=== PATIENT | female | born 1950 | race Two or more races ===

== ENCOUNTER → 2021-08-09 16:02 | Outpatient (BNVA) | payer OTHER, SELFPAY | PROVIDERS: PCP Internal Medicine; Visit Provider Nurse Practitioner Family | DX: G47.9 Sleep disorder, unspecified (principal); R06.83 Snoring; G20 Parkinson's disease; M54.2 Cervicalgia; K59.00 Constipation, unspecified; Z79.899 Other long term (current) drug therapy | CPT/HCPCS: 99212 ==

== ENCOUNTER → 2021-11-06 15:10 | Outpatient (BNVA) | payer OTHER, SELFPAY | PROVIDERS: PCP Internal Medicine; Visit Provider Nurse Practitioner Family | DX: G20 Parkinson's disease (principal); G47.9 Sleep disorder, unspecified | CPT/HCPCS: 99212 ==

== ENCOUNTER → 2022-05-15 15:10 | Outpatient (BNVA) | payer OTHER, SELFPAY | PROVIDERS: PCP Internal Medicine; Visit Provider Nurse Practitioner Family | DX: G20 Parkinson's disease (principal); G47.9 Sleep disorder, unspecified; K59.00 Constipation, unspecified; Z79.899 Other long term (current) drug therapy | CPT/HCPCS: 99212 ==

== ENCOUNTER → 2022-11-21 15:54 | Outpatient (BNVA) | payer OTHER, SELFPAY | PROVIDERS: PCP Internal Medicine; Visit Provider Nurse Practitioner Family | DX: G20 Parkinson's disease (principal); G47.9 Sleep disorder, unspecified; K59.00 Constipation, unspecified; Z79.899 Other long term (current) drug therapy | CPT/HCPCS: 99212 ==

== ENCOUNTER 2023-04-18 14:23 | Outpatient (AMB) | payer OTHER, SELFPAY ==
--- NOTE | 2023-04-18 14:24 | MHC.OFFVIS ---
Intake Vital Signs 04/18/23 14:25 Height 5 ft 6 in Weight 139 lb 8 oz BMI 22.5 BP 116/74 Blood Pressure Location Rt brachial Position Sitting Pulse 72 Pulse Source Pulse Oximeter Pulse Oximetry (%) 96 Oxygen Delivery Method Room Air Intake Visit Reasons: 3 mnts f/u appt-Confirmed Intake Note: Patient presents for 3 months. patient states No issues or concerns, she not sleeping very well. Allergies aspirin Allergy (Mild, Verified 04/18/23 14:29) unknown diclofenac Allergy (Mild, Verified 04/18/23 14:29) unknown Medication List - Last Reconciled 04/18/23 by BK Isaac acetaminophen ER (Mapap Arthritis Pain) 0 mg PO amantadine HCl 100 mg PO BID 90 days apixaban (Eliquis) 5 mg PO BID atorvastatin 40 mg PO DAILY bisacodyl 0 mg PO BEDTIME carbidopa-levodopa 25-250 mg 0.5 - 1 tabs orally 6 times a day (max 4 tabs per day); 90 days carbidopa-levodopa 61.25-245 mg ER (Rytary) 2 caps in am and bedtime, and 1 cap 4 x's per day orally 4 times a day; divide evenly over waking hours 30 days carvedilol 12.5 mg PO BID clopidogrel 75 mg PO DAILY dronedarone (Multaq) 400 mg PO BID ferrous sulfate (FeroSul) 325 mg PO TID furosemide 20 mg PO BID hydralazine 25 mg PO BID HPI HPI Comments History of Present Illness Details 72-yr-old female with Parkinson's presents for f/u, accompanied by dtr. Pt denies any significant interval medical changes. Pt reports that her Parkinson's symptoms fluctuate, she is can feel more rigid and slow. Denies light headedness. Denies hallucinations. Denies difficulty chewing or swallowing. She can have constipation. Pt's daughter reports that patient is not physically active. Not always sleeping well. [facility] Medical History Arthritis CKD (chronic kidney disease) Heart disease HLD (hyperlipidemia) Stroke Social History Alcohol intake: never Patient Tobacco Use Status: Never used Tobacco Review of Systems Const All systems reviewed & are unremarkable except as noted in HPI and below Physical Exam Vital Signs: Last Vital Signs Pulse 72 04/18/23 14:25 BP 116/74 04/18/23 14:25 Pulse Ox 96 04/18/23 14:25 Oxygen Delivery Method Room Air 04/18/23 14:25 BMI result Body Mass Index 22.5 Const General: cooperative and no acute distress HEENT Head: Yes normocephalic Resp Effort & Inspection: normal respiratory effort and able to speak in complete sentences Neuro Other: A&O Pleasant affect Mild decreased expression in blink.? Limited RUE ROM. RUE rest and BUE postural tremor.? Fine finger movements and foot taps mild bradykinesia. Slow to stand, no arm swing, short steps, steady with cane. Assessment & Plan Assessment & Plan (1) Parkinson's disease: Code(s): G20 - Parkinson's disease (2) Sleep disorder, unspecified: Comment: Snoring, sleep maintenance difficulties, daytime fatigue, REM sleep behaviors. In-lab PSG 2021- poor sleep efficiency, no REM sleep recorded, AHI 0.3/hr w/ O2 karla 93%. Code(s): G47.9 - Sleep disorder, unspecified Plan Trial Rytary 61.25-245mg caps- 2 caps in am and bedtime, and 1 cap 4 x's per day Once available, hold carbidopa-levodopa 25-100 mg to 1-1/2-1-1/2-1/2-1/2 (max 4 tabs per day). Continue amantadine 100 mg b.i.d.. Continue melatonin 10-20mg q.h.s.. Continue MiraLax, lactulose, bisacodyl, enema p.r.n. Follow-up in 4 months or sooner prn. Medications: New carbidopa-levodopa 61.25-245 mg ER (Rytary) 2 caps in am and bedtime, and 1 cap 4 x's per day orally 4 times a day; divide evenly over waking hours 240 caps 6RF 30 days Coding Level of Care Code Est Pt Level 4 (83166) Diagnoses Parkinson's disease G20 Sleep disorder, unspecified G47.9
[2023-04-18 14:25] VITALS: BP 116/74; PULSE 72; O2SAT 96; BMI 22.5
== END 2023-04-18 15:23 | disposition home or self-care (01) ==
PROVIDERS: PCP Internal Medicine; Visit Provider Nurse Practitioner Family
DX: G20.A2 Parkinson's disease without dyskinesia, with fluctuations (principal); G47.9 Sleep disorder, unspecified
CPT/HCPCS: 99214

== ENCOUNTER → 2023-04-18 14:23 | Outpatient (BNVA) | payer OTHER, SELFPAY | PROVIDERS: PCP Internal Medicine; Visit Provider Nurse Practitioner Family | DX: G20.A1 Parkinson's disease without dyskinesia, without mention of fluctuations (principal); G47.9 Sleep disorder, unspecified | CPT/HCPCS: 99212 ==

== ENCOUNTER 2023-08-23 14:28 | Outpatient (AMB) | payer OTHER, SELFPAY ==
--- NOTE | 2023-08-23 14:43 | MHC.OFFVIS ---
Intake Vital Signs 08/23/23 14:44 Height 5 ft 6 in Weight 139 lb BMI 22.4 Intake Visit Reasons: 4 mo f/u - Sleeping-LVM Intake Note: Patient presents for 4 month follow up sleeping. my tremors are getting worst. Allergies aspirin Allergy (Mild, Verified 08/23/23 14:49) unknown diclofenac Allergy (Mild, Verified 08/23/23 14:49) unknown Medication List - Last Reconciled 09/01/23 by BK Isaac acetaminophen ER (Mapap Arthritis Pain) 0 mg PO amantadine HCl 100 mg PO BID 90 days apixaban (Eliquis) 5 mg PO BID atorvastatin 40 mg PO DAILY bisacodyl 0 mg PO BEDTIME cane Qad cane carbidopa-levodopa 25-250 mg 0.5 - 1 tabs orally 6 times a day (max 4 tabs per day); 90 days carbidopa-levodopa 61.25-245 mg ER (Rytary) 2 caps in am and bedtime, and 1 cap 4 x's per day orally 4 times a day; divide evenly over waking hours 30 days carvedilol 12.5 mg PO BID clopidogrel 75 mg PO DAILY dronedarone (Multaq) 400 mg PO BID ferrous sulfate (FeroSul) 325 mg PO TID furosemide 20 mg PO BID hydralazine 25 mg PO BID HPI HPI Comments History of Present Illness Details 73-yr-old female with Parkinson's presents for f/u, accompanied by dtr. Pt denies any significant interval medical changes. Pt reports her Parkinson's symptoms continue to fluctuate. She never rec'd Rytary. Her tremor continues to be increased at night. She can be stiff and slow. Denies light headedness. Denies hallucinations. Denies difficulty chewing or swallowing. She can have constipation. She is not as active- her knee pain is limiting her mobility even more. Pt would prefer a quad cane- feels it would make her steadier than w/ her current 1 point cane. Sleep varies. [facility] Medical History (Updated 09/01/23 @ 20:38 by BK Isaac) Parkinson's disease Stroke Heart disease Arthritis CKD (chronic kidney disease) HLD (hyperlipidemia) Social History Alcohol intake: never Patient Tobacco Use Status: Never used Tobacco Review of Systems Const All systems reviewed & are unremarkable except as noted in HPI and below Physical Exam Vital Signs: BMI result Body Mass Index 22.4 Const General: cooperative and no acute distress Resp Effort & Inspection: normal respiratory effort and able to speak in complete sentences Neuro Other: A&O Pleasant affect Mild decreased expression in blink.? Limited RUE ROM. RUE rest and BUE postural tremor.? Fine finger movements and foot taps mild bradykinesia. Slow to stand, no arm swing, short steps, steady with cane. Psych Appearance: grossly normal Mental Status: mental status grossly normal Speech and movement: Clear speech present Affect: normal affect Assessment & Plan Assessment & Plan (1) Parkinson's disease without dyskinesia: Code(s): G20.A1 - Parkinson's disease without dyskinesia, without mention of fluctuations (2) Right knee pain: Code(s): M25.561 - Pain in right knee (3) Gait difficulty: Code(s): R26.9 - Unspecified abnormalities of gait and mobility (4) Constipation: Code(s): K59.00 - Constipation, unspecified Plan Will refer pt to orthopedics for eval of worsening right pain and varus. Will order new quad cane. Will f/u on order Rytary 61.25-245mg caps- 2 caps in am and bedtime, and 1 cap 4 x's per day (2 - 1- 1- 1- 1- 2).- in hopes this improves on time. Once Rytary available, hold carbidopa-levodopa 25-100 mg 1-1/2-1-1/2-1/2-1/2 (max 4 tabs per day). Continue amantadine 100 mg b.i.d.. Continue melatonin 10-20mg q.h.s.. Continue MiraLax, lactulose, bisacodyl, enema p.r.n. Follow-up in 4 months or sooner prn. Medications: New cane Qad cane 1 ea 0RF G20 - Parkinson's disease, R26.9 - Unspecified abnormalities of gait and mobility, Z91.81 - History of falling, M25.561 - Pain in right knee Changed From carbidopa-levodopa 61.25-245 mg ER 2 caps in am and bedtime, and 1 cap 4 x's per day orally 4 times a day; divide evenly over waking hours 30 days 240 caps 6RF To carbidopa-levodopa 61.25-245 mg ER (Rytary) 2 caps in am and bedtime, and 1 cap 4 x's per day orally 4 times a day; divide evenly over waking hours 240 caps 6RF 30 days Coding Level of Care Code Est Pt Level 4 (55001) Diagnoses Parkinson's disease without dyskinesia G20.A1 Right knee pain M25.561 Gait difficulty R26.9 Constipation K59.00
[2023-08-23 14:44] VITALS: BMI 22.4
== END 2023-08-23 15:49 | disposition home or self-care (01) ==
PROVIDERS: PCP Internal Medicine; Visit Provider Nurse Practitioner Family
DX: G20.A1 Parkinson's disease without dyskinesia, without mention of fluctuations (principal); M25.561 Pain in right knee; R26.9 Unspecified abnormalities of gait and mobility; K59.00 Constipation, unspecified
CPT/HCPCS: 99214

== ENCOUNTER → 2023-08-23 14:28 | Outpatient (BNVA) | payer OTHER, SELFPAY | PROVIDERS: PCP Internal Medicine; Visit Provider Nurse Practitioner Family | DX: G20.A1 Parkinson's disease without dyskinesia, without mention of fluctuations (principal); M25.561 Pain in right knee; R26.9 Unspecified abnormalities of gait and mobility; K59.00 Constipation, unspecified | CPT/HCPCS: 99212 ==

== ENCOUNTER 2023-09-23 08:43 | Outpatient (REF) | payer OTHER, SELFPAY ==
--- NOTE | ~2023-09-23 | XR_ITS ---
EXAMINATION: XR SHOULDER, LEFT CLINICAL INFORMATION: Left shoulder pain COMPARISON: None available. TECHNIQUE: AP external rotation, scapular Y views of the left shoulder. FINDINGS: BONES: Markedly comminuted fracture lateral left humeral head and surgical neck with mild impaction is seen. JOINTS: Alignment of left glenohumeral and acromioclavicular joints is normal. SOFT TISSUE: Soft tissue is normal. No radiopaque foreign body or abnormal air collection is seen. XR/XR shoulder LT min 2V IMPRESSION: Markedly comminuted fracture lateral left humeral head and surgical neck with mild impaction.
--- NOTE | ~2023-09-23 | XR_ITS ---
EXAMINATION: XR KNEE, RIGHT CLINICAL INFORMATION: Right knee pain COMPARISON: None available. TECHNIQUE: Standing frontal x-ray of bilateral knees, lateral and sunrise view x-rays of the right knee. FINDINGS: BONES: Bony structures are intact. There is no focal bone destruction or periosteal reaction seen. JOINTS: There is complete loss of lateral compartment right knee joint space, genu valgus deformity. SOFT TISSUE: Right suprapatellar fat pad shows increase in density. No radiopaque foreign body or abnormal air collection is seen. XR/XR knee RT 3V IMPRESSION: 1. No acute fracture or dislocation. 2. Severe degenerative changes of the right knee with genu valgus deformity. 3. Right knee effusion is present.
== END 2023-09-23 08:44 | disposition home or self-care (01) ==
LOC: HO.HOSX 08:43
PROVIDERS: Visit Provider Orthopaedic Surgery
DX: S42.202A Unspecified fracture of upper end of left humerus, initial encounter for closed fracture (principal); M17.11 Unilateral primary osteoarthritis, right knee; G20.A1 Parkinson's disease without dyskinesia, without mention of fluctuations; M21.061 Valgus deformity, not elsewhere classified, right knee; X58.XXXA Exposure to other specified factors, initial encounter; Y93.9 Activity, unspecified; Y92.9 Unspecified place or not applicable; Y99.9 Unspecified external cause status; Z91.81 History of falling
CPT/HCPCS: 73030; 73562; 99202

== ENCOUNTER 2023-09-23 09:45 | Outpatient (AMB) | payer OTHER, SELFPAY ==
--- NOTE | 2023-09-23 10:09 | MHC.OFFVIS ---
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 She has a history of Parkinson's disease. Patient reports chronic pain in her right knee. She has taken multiple falls due to Parkinson's, the most recent fall being on Saturday09/18/23. Since this fall she is having increased pain in the right knee and left shoulder. After this fall she was seen in [facility] ED where she was instructed to ice her shoulder and wear a sling. Patient applied ice without barrier and has developed a blister on the anterior aspect of her shoulder. 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 She has a history of Parkinson's disease. Patient reports chronic pain in her right knee. She has taken multiple falls due to Parkinson's, the most recent fall being on Saturday09/18/23. Since this fall she is having increased pain in the right knee and left shoulder. After this fall she was seen in [facility] ED where she was instructed to ice her shoulder and wear a sling. Patient applied ice without barrier and has developed a blister on the anterior aspect of her shoulder. [facility] Medical History Parkinson's disease Stroke Heart disease Arthritis CKD (chronic kidney disease) HLD (hyperlipidemia) Social History Alcohol intake: never Patient Tobacco Use Status: Never used Tobacco Physical Exam Vital Signs: BMI result Body Mass Index 22.4 Extrem Other: Right valgus knee approx 20 deg. 1+ valgus instability. Left shoulder with eccymosis and pain and small lateral fracture blister. SILT lateral deltoid Results Reviewed Results Reviewed: I personally reviewed relevant radiographs. Severe right knee valgus pattern OA Left proximal humerus fracture Assessment & Plan Assessment & Plan (1) Parkinson's disease without dyskinesia: Code(s): G20.A1 - Parkinson's disease without dyskinesia, without mention of fluctuations Plan: Frequent falls. (2) Arthritis of right knee: Code(s): M17.11 - Unilateral primary osteoarthritis, right knee Plan: Unloading brace may be helpful but does not want injections or surgery (3) Valgus deformity, not elsewhere classified, right knee: Code(s): M21.061 - Valgus deformity, not elsewhere classified, right knee Plan: Severe deformity (4) Closed fracture of left proximal humerus: Code(s): S4.A - Unspecified fracture of upper end of left humerus, initial encounter for closed fracture Plan: Gentle ROM as tolerated. Sling as tolerated. Orders: Orders XR knee standing BI Today M25.569 - Pain in unspecified knee XR shoulder LT min 2V Today M25.519 - Pain in unspecified shoulder Coding Level of Care Code New Pt Level 4 (97456) Diagnoses Parkinson's disease without dyskinesia G20.A1 Arthritis of right knee M17.11 Valgus deformity, not elsewhere classified, right knee M21.061 Closed fracture of left proximal humerus S42.
[2023-09-23 10:21] VITALS: BMI 22.4
== END 2023-09-23 11:36 | disposition home or self-care (01) ==
PROVIDERS: PCP Internal Medicine; Visit Provider Orthopaedic Surgery
DX: M17.11 Unilateral primary osteoarthritis, right knee (principal); G20.A1 Parkinson's disease without dyskinesia, without mention of fluctuations; M21.061 Valgus deformity, not elsewhere classified, right knee; S42.202A Unspecified fracture of upper end of left humerus, initial encounter for closed fracture
CPT/HCPCS: 99204

== ENCOUNTER 2023-12-17 14:49 | Outpatient (AMB) | payer OTHER, SELFPAY ==
--- NOTE | 2023-12-17 14:57 | A.OFFVIS_ITS ---
Vital Signs 12/17/23 15:06 Height 5 ft 6 in Weight 138 lb BMI 22.3 BP 142/80 H Blood Pressure Location Lt brachial Position Sitting Pulse 72 Pulse Source Pulse Oximeter Pulse Oximetry (%) 99 Oxygen Delivery Method Room Air Intake Visit Reasons: follow up Sleeping-LVM Intake Note: Patient presents for f/u. Right hand weakness and finger very stiff. Muscle tightness. Would like a order for PT. Reading Tutor Required: Yes Reading Tutor Services: Reading Tutor Present Reading Tutor Name: Michaelle Randolph Allergies aspirin Allergy (Mild, Verified 12/17/23 15:05) unknown diclofenac Allergy (Mild, Verified 12/17/23 15:05) unknown Medication List - Last Reconciled 12/17/23 by BK Isaac acetaminophen ER (Mapap Arthritis Pain) 0 mg PO apixaban (Eliquis) 5 mg PO BID atorvastatin 40 mg PO DAILY bisacodyl 0 mg PO BEDTIME cane Qad cane carbidopa-levodopa 25-100 mg ER 2 tabs orally 6 x's per day; 30 days carvedilol 12.5 mg PO BID clopidogrel 75 mg PO DAILY dronedarone (Multaq) 400 mg PO BID ferrous sulfate (FeroSul) 325 mg PO TID furosemide 20 mg PO BID hydralazine 25 mg PO BID HPI Comments Details: 73-yr-old female presents for f/u visit, accompanied by her dtr. She had a fall at the end of August, fell onto her left side and sustained a left humerus fx. She did see Dr Stevens, and now will see [facility] orthopedics on 12/19/23. She has been doing PT which will end next week. Pt asksing for referal for massage tx. She would like to do a PD exercise class. Pt's current PD medication regimen: CD-LD ER 25-100mg- 6 tablets a day. Amantadine 100mg bid She never received the Rytary- was denied. ADL's: Needing some help Swallowing: a little if drinking water from a bottle Drooling: some Orthostatic lightheadedness: denies Constipation: some, manages it ok w/ fruits Urinary symptoms: denies Tremor: tremor continues to be increased at night. Dyskinesia: denies Stiffness: soem in the RLE Gait changes: Better w/ the 4 wheeled walker Freezing: Denies Falls: No other falls Mood: some depression Hallucinations: at times- in the night, can be bothersome. Memory: feels it is ok, but may have word finding difficulty. Sleep: can have some difficulty. Exercise: completing PT PFSH Medical History Parkinson's disease Stroke Heart disease Arthritis CKD (chronic kidney disease) HLD (hyperlipidemia) Social History Alcohol intake: never Patient Tobacco Use Status: Never used Tobacco Review of Systems Const All systems reviewed & are unremarkable except as noted in HPI and below Physical Exam Vital Signs: Last Vital Signs Pulse 72 12/17/23 15:06 BP 142/80 H 12/17/23 15:06 Pulse Ox 99 12/17/23 15:06 Oxygen Delivery Method Room Air 12/17/23 15:06 BMI result Body Mass Index 22.3 Const General: cooperative and no acute distress Resp Effort & Inspection: normal respiratory effort and able to speak in complete sentences Neuro Other: A&O Pleasant affect Mild decreased expression in blink.? Soft speech RUE ROM tightness No dyskinesias. RUE rest and BUE postural tremor.? Fine finger movements and Foot taps mild bradykinesia- induces RUE spread of movement tremor. Slow to stand, no arm swing, short steps, RLE valgus, steady with walker. Assessment & Plan Assessment & Plan (1) Parkinson's disease without dyskinesia: Code(s): G20.A1 - Parkinson's disease without dyskinesia, without mention of fluctuations Category: Medical (2) Rigidity: Code(s): R29.898 - Other symptoms and signs involving the musculoskeletal system Category: Medical (3) Gait difficulty: Code(s): R26.9 - Unspecified abnormalities of gait and mobility Category: Medical Plan F/u w/ [facility] ortho for LUE humerus fx. Discussed that pt may do PD exercise program if ortho clears her for this. Order written for massage tx. Message sent to [facility] ortho- to f/u on RLE knee brace request. Continue to use walker. Adjust CD-LD ER 25-100mg 1 tab 6 x's per day to 8 tabs per day- 2-1-2-1-1-1. Take w/ carbohydrate. If not tolerated, consider Rytary at approx 1800mg qd. Continue amantadine 100 mg b.i.d.. Continue melatonin 10-20mg q.h.s.. Continue MiraLax, lactulose, bisacodyl, enema p.r.n. Follow-up in 4-6 months or sooner prn. Orders: Referrals Massage Therapy Referral G20.A1 - Parkinson's disease without dyskinesia, without mention of fluctuations, R29.898 - Other symptoms and signs involving the musculoskeletal system Coding Level of Care Code Est Pt Level 4 (99365) Diagnoses Parkinson's disease without dyskinesia G20.A1 Rigidity R29.898 Gait difficulty R26.9
[2023-12-17 15:06] VITALS: BP 142/80; PULSE 72; O2SAT 99; BMI 22.3
== END 2023-12-17 16:13 | disposition home or self-care (01) ==
PROVIDERS: PCP Internal Medicine; Visit Provider Nurse Practitioner Family
DX: G20.A1 Parkinson's disease without dyskinesia, without mention of fluctuations (principal); R29.898 Other symptoms and signs involving the musculoskeletal system; R26.9 Unspecified abnormalities of gait and mobility
CPT/HCPCS: 99214

== ENCOUNTER → 2023-12-17 14:49 | Outpatient (BNVA) | payer OTHER, SELFPAY | PROVIDERS: PCP Internal Medicine; Visit Provider Nurse Practitioner Family | DX: G20.A1 Parkinson's disease without dyskinesia, without mention of fluctuations (principal); R26.9 Unspecified abnormalities of gait and mobility; R29.898 Other symptoms and signs involving the musculoskeletal system | CPT/HCPCS: 99212 ==

== ENCOUNTER 2024-07-15 15:41 | Outpatient (AMB) | payer OTHER, SELFPAY ==
[2024-07-15 15:48] VITALS: PULSE 77; O2SAT 92; BMI 22.3
--- NOTE | 2024-07-15 15:48 | A.OFFVIS_ITS ---
Vital Signs 07/15/24 15:48 Height 5 ft 6 in Weight 138 lb BMI 22.3 Pulse 77 Pulse Source Pulse Oximeter Pulse Oximetry (%) 92 Oxygen Delivery Method Room Air Intake Visit Reasons: Follow up Allergies aspirin Allergy (Mild, Verified 07/15/24 15:51) unknown diclofenac Allergy (Mild, Verified 07/15/24 15:51) unknown Medication List - Last Reconciled 07/15/24 by BK Isaac acetaminophen ER (Mapap Arthritis Pain) 0 mg PO apixaban (Eliquis) 5 mg PO BID atorvastatin 40 mg PO DAILY bisacodyl 0 mg PO BEDTIME cane Qad cane carbidopa-levodopa 61.25-245 mg ER (Rytary) 2 caps in am and 1 cap 5 x's per day orally .; divide evenly over waking hours 30 days carvedilol 12.5 mg PO BID clopidogrel 75 mg PO DAILY dronedarone (Multaq) 400 mg PO BID ferrous sulfate (FeroSul) 325 mg PO TID furosemide 20 mg PO BID hydralazine 25 mg PO BID polyethylene glycol 3350 (Miralax) 17 grams PO DAILY 30 days sertraline 25 mg PO DAILY 30 days HPI Comments Details: 74-yr-old female presents for f/u visit for Parkinson's disease, accompanied by her dtr. Patient is wondering about darkening of her skin in bilateral hands and feet. She denies distal swelling, numbness tingling. Occasionally may have some discomfort in her feet. She has talked with her PCP about this, and this was thought to be age-related. Recent lab work was unremarkable Pt's current PD medication regimen: Rytary 61.25-245 mg cap- 1 cap 6 times a day or 2 caps 3 times a day. Amantadine 100mg bid ADL's: Needing some help Swallowing: denies issues at this time Drooling: some Orthostatic lightheadedness: denies Constipation: Patient has been having increased constipation. Taking fruits is not as effective as it used to be. Urinary symptoms: denies Tremor: tremor continues to be increased at night. Dyskinesia: denies Stiffness: some in the arms and the RLE. Now seeing orthopedics at [facility] for her right knee- wearing a brace which helps. Gait changes: Better w/ the right knee brace and 4 wheeled walker Freezing: Denies Falls: Denies Mood: After the last visit, we started patient on sertraline 25 mg daily due to anxiety and depression. Mood is better, but she may be sad at times. Hallucinations: at times- vivid dreams, but not bothersome Memory: feels it is ok, but may have word finding difficulty. Sleep: sleeping about 7-8 hrs a night Exercise: doing PT for her arms at this time. [facility] Medical History Parkinson's disease Stroke Heart disease Arthritis CKD (chronic kidney disease) HLD (hyperlipidemia) Social History Alcohol intake: never Patient Tobacco Use Status: Never used Tobacco Physical Exam Vital Signs: Last Vital Signs Pulse 77 07/15/24 15:48 Pulse Ox 92 07/15/24 15:48 Oxygen Delivery Method Room Air 07/15/24 15:48 BMI result Body Mass Index 22.3 Const General: cooperative and no acute distress Resp Effort & Inspection: normal respiratory effort and able to speak in complete sentences Neuro Other: A&O, responding appropriately Pleasant affect Mild decreased expression in blink.? Soft speech Mild visible intermittent drooling BUE R > L rigidity No dyskinesias. RUE rest and BUE postural tremor.? Fine finger movements- BUE, right more so than left, bradykineisia Foot taps mild BLE bradykinesia- induces RUE spread of movement tremor. Slow to stand, no arm swing, short steps, RLE knee brace on with varus, steady with walker. Assessment & Plan Assessment & Plan (1) Parkinson's disease without dyskinesia: Code(s): G20.A1 - Parkinson's disease without dyskinesia, without mention of fluctuations Category: Medical (2) Rigidity: Code(s): R29.898 - Other symptoms and signs involving the musculoskeletal system Category: Medical (3) Gait difficulty: Code(s): R26.9 - Unspecified abnormalities of gait and mobility Category: Medical (4) Constipation: Code(s): K59.00 - Constipation, unspecified Category: Medical Plan Continue Rytary 61.25mg-245mg- though adjust timing to 2 caps in a.m. and then 1 cap p.o. 5 times a day. Continue amantadine 100 mg b.i.d. Continue sertraline 25 mg daily. Continue melatonin 10-20mg q.h.s. prn Start MiraLax 17 g p.o. daily- taken with fruit-for constipation Continue lactulose, bisacodyl, enema p.r.n constipation Follow-up with [facility] orthopedics Continue to walk with walker. Follow-up in 6 months or sooner prn. Medications: New polyethylene glycol 3350 (Miralax) 17 grams PO DAILY 510 grams 6RF 30 days G20.A1 - Parkinson's disease without dyskinesia, without mention of fluctuations, K59.00 - Constipation, unspecified Changed From carbidopa-levodopa 61.25-245 mg ER (Rytary) 2 caps in am and bedtime, and 1 cap 4 x's per day orally 4 times a day; divide evenly over waking hours 240 caps 6RF 30 days To carbidopa-levodopa 61.25-245 mg ER (Rytary) 2 caps in am and 1 cap 5 x's per day orally .; divide evenly over waking hours 240 caps 6RF 30 days Discontinued carbidopa-levodopa 25-100 mg ER Discontinued Reason: Doctor's Order 2 tabs orally 6 x's per day; 30 days 360 tabs 6RF Coding Level of Care Code Est Pt Level 4 (42396) Complex EM visit Add On G2211 Diagnoses Parkinson's disease without dyskinesia G20.A1 Rigidity R29.898 Gait difficulty R26.9 Constipation K59.00
--- OUTSIDE RECORDS SUMMARY | 2024-07-15 17:59 | XMS_ITS | Clinical Summary ---
Author Organization [facility] Address [address] [place] [address] Phone Care Team Providers Care Accounts Payable Analyst Name Role Phone Faraz Witt Primary [facility] Provider [facility] Un[facility] [phone] Reason for Visit and Chief Complaint Established Patient Plan of Treatment Pending Tests Order Diagnosis Results Due Ordering P earlene Follow Up - Appointment PRN Unsp fra cture of upper end of left humerus, init for clos fx 03/05/24 Rocio OSORIO Last Documented On 4 11:34AM ; [facility] Assessments Includes: Assessments from this encounter No Assessments Recorded Medical Equipment - Implanted Devices Includes: Current Devices No Medical Equipment Recorded Medications Includes: Medications discussed during this encounter and other current Medications Current Medications (continue as prescribed) Endocet 2.5-325 MG Oral Tablet 10/03/2023 Provider: Diagnosis: Last Documented On 4 9:07AM By Abdirahman Diez ; [facility] Medications Administered Includes: Administered Medications from this encounter No Administered Medications Recorded Vital Signs Includes: Vital Signs from this encounter Vital Name 03/05/2024 10:23A Blood Pressure Sitting (mmHg) 132/81 Pulse Rate-Sitting (bpm) 70 Temp-Temporal 96.9 Height (in) 65 Weight (lb) 138 Body Mass Index 23 Body Surface Area 1.7 Oxygen Saturation (%) 98 Last Documented: On 03/05/2024 10:23A M ; [facility] Results Includes: Results discussed during this encounter No Results Recorded For Specified Dates History of Present Illness Includes: History of Present Illness from this encounter No History of Present Illness Recorded Social History No Social History Recorded - Smoking Status Unknown Medical History Includes: Medical History addressed during this encounter No Medical History Recorded Family History Includes: Family History addressed during this encounter No Family History Recorded Review of Systems Includes: Review of Systems from this encounter Chief complaint: Left proximal humerus fracture Date of injury: 09/18/2023 History of present illness: The patient is a 74-year-old mafcj-ecvk-wbuxmyem Kyrgyz-speaking female with a medical history significant for parkinsonian has been treated nonsurgically for a left proximal humerus fracture. She was last seen in the office on 12/19/2023. She was instructed to work with PT and follow-up in 8 to 10 weeks. She is accompanied today by her daughter. She reports last going to therapy in December due to insurance issues. She is scheduled to begin PT again on 03/11/2024. She complains of bilateral shoulder pain with left greater than right. She complains of pain with shoulder range of motion and is unable to raise her left arm overhead. She has been taking Tylenol for pain. She is unable to take NSAIDs due to hypertension. She denies numbness or tingling. She has no other complaints at this time. Physical exam: Mild tenderness to palpation over left shoulder. No wounds, ecchymosis or skin breakdown noted. Shoulder range of motion abduction to 60 degrees, forward flexion 70 degrees. Pain with shoulder range of motion. No pain with elbow, wrist or hand range of motion. Good abrasive mixer helper strength. Skin and neurovascular exams intact. Diagnostic imaging: None obtained today Assessment: The patient is 6 months status post left proximal humerus fracture Plan: Patient is to restart physical therapy for range of motion exercises and strengthening. Continue Tylenol as needed for pain. Rest, ice and elevate as needed. Caution to avoid reinjury. She may follow-up as needed. The patient and her daughter understand and agree with the above-stated plan. historic interpreter utilized via [employer], [email or web address] #[id number]. Case discussed with Dr. Archuleta. Mental Status Includes: Mental Status from this encounter No Mental Status Recorded Functional Status Includes: Functional Status from this encounter No Functional Status Recorded Physical Exam Includes: Physical Exam from this encounter Encounters Encounter Provider Location Date Check-In Time Check-Out Time Diagnosis Established Patient Rocio OSORIO [facility], 03/05/20 24 10:40AM 11:29AM Insurance Includes: Active Insurance Policies Plan Name Member ID Group # Subscriber Relationship Effect becky Dates 1 - [facility] [id number] Julee Simental Self Clinical Notes Includes: Clinical Notes from this encounter * Progress note Date Encounter Last Documented by 03/05/2024 Established Patient Last hanny foster on 03/05/2024; 11:34 AM, Rocio OSORIO; [facility], Physical Findings - Vitals taken 03/05/2024 10:23 am BP-Sitting 132/81 mmHg Pulse Rate-Sitting 70 bpm Temp-Temporal 96.9 F Height 65 in Weight 138 lbs Body Mass Index 23 kg/m2 Body Surface Area 1.7 m2 Oxygen Saturation 98 % Plan StartCited - Unsp fracture of upper end of left humerus, init for clos fx Follow Up/Appointment: PRN EndCited User Defined 4 Chief complaint: Left proximal humerus fracture Date of injury: 09/18/2023 History of present illness: The patient is a 74-year-old dfoqd-jaax-fqhhbiqh Kyrgyz-speaking female with a medical history significant for parkinsonian has been treated nonsurgically for a left proximal humerus fracture. She was last seen in the office on 12/19/2023. She was instructed to work with PT and follow-up in 8 to 10 weeks. She is accompanied today by her daughter. She reports last going to therapy in December due to insurance issues. She is scheduled to begin PT again on 03/11/2024. She complains of bilateral shoulder pain with left greater than right. She complains of pain with shoulder range of motion and is unable to raise her left arm overhead. She has been taking Tylenol for pain. She is unable to take NSAIDs due to hypertension. She denies numbness or tingling. She has no other complaints at this time. Physical exam: Mild tenderness to palpation over left shoulder. No wounds, ecchymosis or skin breakdown noted. Shoulder range of motion abduction to 60 degrees, forward flexion 70 degrees. Pain with shoulder range of motion. No pain with elbow, wrist or hand range of motion. Good abrasive mixer helper strength. Skin and neurovascular exams intact. Diagnostic imaging: None obtained today Assessment: The patient is 6 months status post left proximal humerus fracture Plan: Patient is to restart physical therapy for range of motion exercises and strengthening. Continue Tylenol as needed for pain. Rest, ice and elevate as needed. Caution to avoid reinjury. She may follow-up as needed. The patient and her daughter understand and agree with the above-stated plan. historic interpreter utilized via [employer], [email or web address] #[id number]. Case discussed with Dr. Archuleta.
--- OUTSIDE RECORDS SUMMARY | 2024-07-15 17:59 | XMS_ITS | Clinical Summary ---
Author Organization [facility] Address [address] [place] [address] Phone Care Team Providers Care Diesel Powerplant Mechanic Helper Name Role Phone Faraz Witt Primary Care Provider [facility] Unavailable [phone] Reason for Visit and Chief Complaint Procedure Plan of Treatment Pending Tests Order Diagnosis Results Due Ordering P earlene Follow Up - Appointment 6 weeks Unsp fra cture of upper end of left humerus, init for clos fx 11/14/23 Mandie Cruz PA-C Last Documented On 4 8:29AM ; [facility] In House X-Rays - X-Rays Shoulder, left, min of 2 views ([id number]) Unsp fracture of upper end of left humerus, init for clos fx 11/16/23 Mandie Cruz PA-C Last Documented On 4 8:29AM ; [facility] Assessments Includes: Assessments from this encounter No Assessments Recorded Medical Equipment - Implanted Devices Includes: Current Devices No Medical Equipment Recorded Medications Includes: Medications discussed during this encounter and other current Medications Current Medications (continue as prescribed) Endocet 2.5-325 MG Oral Tablet 10/03/2023 Provider: Diagnosis: Last Documented On 9:07AM By Abdirahman Diez ; [facility] Medications Administered Includes: Administered Medications from this encounter No Administered Medications Recorded Vital Signs Includes: Vital Signs from this encounter Vital Name 11/14/2023 08:35A Blood Pressure Sitting (mmHg) 125/73 Pulse Rate-Sitting (bpm) 55 Temp-Temporal 97 Height (in) 65 Weight (lb) 138 Body Mass Index 23 Body Surface Area 1.7 Oxygen Saturation (%) 97 Last Documented: On 11/14/2023 8:35AM ; [facility] Results Includes: Results discussed during this encounter No Results Recorded For Specified Dates History of Present Illness Includes: History of Present Illness from this encounter No History of Present Illness Recorded Social History No Social History Recorded - Smoking Status Unknown Procedures and Surgical History Includes: Procedures from this encounter Procedures Code Diagnosis Performing Provider Service Location Service Date X-Ray Of Shoulder, complete, min of 2 views (Left) [id number] Unsp fracture of upper end of left humerus, init for clos fx Mand[facility] Cruz [facility] 11/14/2023 Last Documented On 4 3:48PM ; [facility] Medical History Includes: Medical History addressed during this encounter No Medical History Recorded Family History Includes: Family History addressed during this encounter No Family History Recorded Review of Systems Includes: Review of Systems from this encounter No Review of Systems Recorded Mental Status Includes: Mental Status from this encounter No Mental Status Recorded Functional Status Includes: Functional Status from this encounter No Functional Status Recorded Physical Exam Includes: Physical Exam from this encounter No Physical Exam Recorded Encounters Encounter Provider Location Date Check-In Time Check-Out Time Diagnosis Procedure Mandie Cruz PA-C [facility] 4 8:00AM 8:25AM Insurance Includes: Active Insurance Policies Plan Name Member ID Group # Subscriber Relationship Effect becky Dates 1 - [facility] [id number] Julee Simental Dameon Clinical Notes Includes: Clinical Notes from this encounter * Progress note Date Encounter Last Documented by 11/14/2023 Procedure Last documented on 11/14/2023; 8:29 AM, Mandie Cruz PA-C; [facility] Reason For Visit Chief complaint: Follow-up fracture left proximal humerus Date of injury: 09/18/2023 History of Present Illness: Patient is a Japanese-speaking 73-year-old female who sustained a fracture to the left proximal humerus on 09/18/2023. She was last seen in the office on 10/15/2023 at which time she was prescribed physical therapy. She is accompanied by her daughter today and her other daughter is on the phone to help with translation. Patient has been to 2 physical therapy appointments and is complaining of ongoing pain throughout the left arm. She has discontinued the sling. No numbness tingling reported. No other complaints at this time Physical exam: Well-appearing elderly female in no acute distress found seated on the exam table. There is moderate swelling noted throughout the left shoulder. No point tenderness appreciated. There is diffuse tenderness throughout the lateral arm. There is a patch of discolored skin on the lateral aspect of the upper arm. Patient has active abduction and forward flexion to about 50 degrees which I am able to advance to about 80 degrees passively. Motor and sensory intact distally. Imaging: X-ray of the left shoulder taken today are compared to prior images. No change in fracture alignment. Fracture callus is present. Impression: 12 weeks sp Fracture left proximal humerus Plan: - Weightbearing: Advance weightbearing as tolerated - Activity/Therapy: Continue PT for range of motion and strengthening as needed- no activity restrictions at this time. Updated physical therapy prescription provided. Patient encouraged to use the arm is much as she can to perform ADLs to accelerate her progress, Caution to avoid reinjury - Dressing/DME: Continue cane for ambulation as needed - Pain control: Elevate affected extremity; apply ice to affected area; over the counter pain medication such as Tylenol or NSAID's - Follow up: 4-6 weeks - X-ray at follow up: none needed Case discussed with Dr Clemons Plan StartCited - Unsp fracture of upper end of left humerus, init for clos fx Follow Up/Appointment: 6 weeks In House X-Rays/X-Rays: Shoulder, left, min of 2 views ([id number]) EndCited
--- OUTSIDE RECORDS SUMMARY | 2024-07-15 17:59 | XMS_ITS ---
Care Plan - [facility], Created on: July 15, 2024 Simental Julee : 1950 Sex: Female Author Organization [facility] Address [address] [place] [address] Phone Care Team Providers Care Senior Microsoft Consultant Name Role Phone Faraz Witt Primary Care Provider [facility], Unavailable [phone]
--- OUTSIDE RECORDS SUMMARY | 2024-07-15 17:59 | XMS_ITS | Clinical Summary ---
Author Organization [facility] Address [address] [place] [address] Phone Care Team Providers Care Cellar Pumper Name Role Phone Faraz Witt Primary [facility] Provider [facility] Un[facility] Reason for Visit and Chief Complaint Established Patient Plan of Treatment No Plan of Treatment Recorded Assessments Includes: Assessments from this encounter No Assessments Recorded Medical Equipment - Implanted Devices Includes: Current Devices No Medical Equipment Recorded Medications Includes: Medications discussed during this encounter and other current Medications Current Medications (continue as prescribed) Endocet 2.5-325 MG Oral Tablet 10/03/2023 Provider: Diagnosis: Last Documented On 9:07AM By Abdirahman Diez ; [facility] Medications Administered Includes: Administered Medications from this encounter No Administered Medications Recorded Vital Signs Includes: Vital Signs from this encounter Vital Name 12/19/2023 08:28A Pulse Rate-Sitting (bpm) 95 Temp-Oral (F) 97 Height (in) 65 Oxygen Saturation (%) 97 Last Documented: On 12/19/2023 8:29AM ; [facility] Results Includes: Results discussed during this encounter [...] Check-In Time Check-Out Time Diagnosis Established Patient Primo Archuleta [facility] 8:00AM 8:17AM Insurance Includes: Active Insurance Policies Plan Name Member ID Group # Subscriber Relationship Effect becky Dates 1 - [facility] [id number] Julee Simental Self Clinical Notes Includes: Clinical Notes from this encounter * Progress note Date Encounter Last Documented by 12/19/2023 Established Patient Willis foster on 12/19/2023; 10:33 AM, Primo Archuleta MD; [facility], Chief Complaint CC: Left proximal humerus fracture DOI: 09/18/2023 Nonoperative treatment HPI: 73-year-old bevbo-jcpg-qiptfdph parkinsonian Turkmen-speaking female Returns with daughter Continuing with physical therapy at home overall continuing to improve There were no x-rays performed today Pain: Improving but not 100% Denies numbness ting paresthesias Denies any recurrent trauma Physical exam Alert oriented nondistressed [age]-year-old female resting comfortably seated in chair Parkinsonian tremor noted Slight habitus pleasant meaner affect Left upper extremity no symmetry to gross deformity Sensation intact distally good cap refill distally Satisfactory motion able to flex and AB duct to approximately 80 to 90 degrees Pronation supination painless and full Plan: Reassurance Continue PT Follow-up 8 to 10 weeks Current Medication - Endocet 2.5-325 MG Oral Tablet 0 days, 0 refills Physical Findings - Vitals taken 12/19/2023 08:28 am Pulse Rate-Sitting 95 bpm Temp-Oral 97 F Height 65 in Oxygen Saturation 97 %
--- OUTSIDE RECORDS SUMMARY | 2024-07-15 17:59 | XMS_ITS | Clinical Summary ---
Author Organization [facility] Address [address] [place] [address] Phone Care Team Providers Care Knotter Name Role Phone Faraz Witt Primary Care Provider [facility] Unavailable [phone] Reason for Visit and Chief Complaint Procedure Plan of Treatment Pending Tests Order Diagnosis Results Due Ordering P earlene Follow Up - Appointment 1 Month Unsp fra cture of upper end of left humerus, init for clos fx 10/15/23 Abram Clemons MD Last Documented On 4 8:40AM ; [facility] Assessments Includes: Assessments from this encounter No Assessments Recorded Medical Equipment - Implanted Devices Includes: Current Devices No Medical Equipment Recorded Medications Includes: Medications discussed during this encounter and other current Medications Current Medications (continue as prescribed) Endocet 2.5-325 MG Oral Tablet 10/03/2023 Provider: Diagnosis: Last Documented On 9:07AM By Abdirahman Diez ; [facility] Medications Administered Includes: Administered Medications from this encounter No Administered Medications Recorded Vital Signs Includes: Vital Signs from this encounter Vital Name 10/15/2023 08:31A Blood Pressure Sitting (mmHg) 126/75 Pulse Rate-Sitting (bpm) 79 Temp-Temporal 97.2 Height (in) 65 Weight (lb) 140 Body Mass Index 23.3 Body Surface Area 1.7 Last Documented: On 10/15/2023 8:32AM ; [facility] Results Includes: Results discussed during [...] Shoulder, complete, min of 2 views (Left) [id number] Unsp fracture of upper end of left humerus, init for clos fx Abram Clemons [facility] 10/15/2023 Last Documented On 4 1:56PM ; [facility] Medical History Includes: Medical History addressed during [...] Date Check-In Time Check-Out Time Diagnosis Procedure Abram Clemons MD [facility] 4 8:20AM 8:48AM Insurance Includes: Active Insurance Policies Plan Name Member ID Group # Subscriber Relationship Effect becky Dates 1 - [facility] [id number] Julee Simental Self Clinical Notes Includes: Clinical Notes from this encounter * Progress note Date Encounter Last Documented by 10/15/2023 Procedure Last documented on 10/15/2023; 8:40 AM, Abram Clemons MD; [facility] Current Medication - Endocet 2.5-325 MG Oral Tablet 0 days, 0 refills Physical Findings - Vitals taken 10/15/2023 08:31 am BP-Sitting 126/75 mmHg Pulse Rate-Sitting 79 bpm Temp-Temporal 97.2 F Height 65 in Weight 140 lbs Body Mass Index 23.3 kg/m2 Body Surface Area 1.7 m2 Chief complaint: Follow-up fracture left proximal humerus History of Present Illness: This is a 73-year-old woman who sustained a fracture of her left proximal humerus on 09/18/2023. She was last seen on 10/03/2023. She presents with her daughter. She has no complaints today. Physical exam: The blister on her left proximal arm is healing without sign of infection. Neurovascular exam is intact. She has minimal discomfort with range of motion of the left shoulder. There is moderate restriction in motion. Imaging: Radiographs of the left shoulder taken today are compared to the prior images. There is continued satisfactory reduction of the fracture. There is abundant fracture callus already present. Impression: Fracture left proximal humerus Plan: The patient may discontinue her sling. I prescribed physical therapy for range of motion and strengthening. I gave her a prescription for a 4 pronged cane. I asked her to return in 1 month for reexamination and x-ray of the left shoulder. Plan StartCited - Unsp fracture of upper end of left humerus, init for clos fx Follow Up/Appointment: 1 Month EndCited
--- OUTSIDE RECORDS SUMMARY | 2024-07-15 17:59 | XMS_ITS ---
Author Organization [facility] Address [address] [place] [address] Phone Care Team Providers Care Typewriters Functional Tester Name Role Phone Faraz Witt Primary Care Provider [facility] Unavailable [phone] Plan of Treatment No Plan of Treatment Recorded Assessments Includes: Assessments for all patient encounters No Assessments Recorded Medical Equipment - Implanted Devices Includes: Current and historical Devices No Medical Equipment Recorded Medications Includes: Current and historical Medications Current Medications (continue as prescribed) Endocet 2.5-325 MG Oral Tablet 10/03/2023 Provider: Diagnosis: Last Documented On 9:07AM By Abdirahman Diez ; [facility] Medications Administered Includes: Administered Medications in patient's chart No Administered Medications Recorded Vital Signs Includes: Vital Signs from 07/15/2023 through 07/15/2024 Vital Name 03/05/2024 10:23A 12/19/2023 08:28A 11/14/2023 08:35A 10/15/2023 08:31A 10/03/2023 09:06A Blood Pressure Sitting (mmHg) 132/81 125/73 126/75 154/80 Pulse Rate-Sitting (bpm) 70 95 55 79 75 Temp-Temporal 96.9 97 97.2 96.9 Height (in) 65 65 65 65 65 Weight (lb) 138 138 140 140 Body Mass Index 23 23 23.3 23.3 Body Surface Area 1.7 1.7 1.7 1.7 Oxygen Saturation (%) 98 97 97 98 Temp-Oral (F) 97 Last Documented: On 03/05/2024 10:23AM ; [facility] On 12/19/2023 8:29AM ; [facility], On 11/14/2023 8:35AM ; [facility] On 10/15/2023 8:32AM ; [facility] On 10/03/2023 9:07AM ; [facility], Results Includes: Results from 07/15/2023 through 07/15/2024 No Results Recorded For Specified Dates History of Present Illness History of Present Illness not supported for this document type No History of Present Illness Recorded Social History No Social History Recorded - Smoking Status Unknown Procedures and Surgical History Includes: Procedures from 07/15/2023 through 07/15/2024 Procedures Code Diagnosis Performing Provider Service Location Service Date X-Ray Of Shoulder, complete, min of 2 views (Left) [id number] Unsp fracture of upper end of left humerus, init for clos fx Mandie Cruz PA-C [facility], 11/14/2023 Last Documented On 4 3:48PM ; [facility], X-Ray Of Shoulder, complete, min of 2 views (Left) [id number] Unsp fracture of upper end of left humerus, init for [facility] fx Abram Clemons MD [facility] 10/15/2023 Last Documented On 4 1:56PM ; [facility], X-Ray Of Shoulder, complete, min of 2 views (Left) [id number] Unsp fracture of upper end of left humerus, init for [facility] scotty Clemons MD [facility] 10/03/2023 Last Documented On 4 2:18PM ; [facility], Treatment Of Ankle Fracture [id number] Unsp fracture of upper end of left humerus, init for [facility] scotty Clemons MD [facility] 10/03/2023 Last Documented On 4 2:18PM ; [facility], Treat Humerus Fracture (Left) [id number] Unsp fracture of upper end of left humerus, init for clos scotty OSORIO [facility] 09/19/2023 Last Documented On 4 8:03AM ; [facility], Medical History Includes: Medical History in patient's chart No Medical History Recorded Family History Includes: Family History in patient's chart No Family History Recorded Review of Systems Review of Systems not supported for this document type No Review of Systems Recorded Mental Status No Mental Status Recorded Functional Status No Functional Status Recorded Physical Exam Physical Exam not supported for this document type No Physical Exam Recorded Encounters Includes: Encounters from 07/15/2023 through 07/15/2024 Encounter Provider Location Date Check-In Time Check-Out Time Diagnosis Established Patient Rocio OSORIO [facility] 10:40AM 11:29AM Established Patient Primo Archuleta MD [facility] 8:00AM 8:17AM Procedure Mandie Cruz PA-C [facility] 8:00AM 8:25AM Procedure Abram Clemons MD [facility] 8:20AM 8:48AM Procedure [facility] 8:40[facility] 9:29AM Insurance Includes: Active Insurance Policies Plan Name Member ID Group # Subscriber Relationship Effect becky Dates 1 - [facility] [id number] Julee Simental Self Clinical Notes Includes: Signed Clinical Notes starting from 06/03/2022 * Progress note Date Encounter Last Documented by 03/05/2024 Established Patient Willis foster on 03/05/2024; 11:34 AM, Rocio OSORIO; [facility] Physical Findings - Vitals taken 03/05/2024 10:23 [...] present illness: The patient is a 74-year-old [id number] Israeli-speaking female with a medical history significant for [...] wrist or hand range of motion. Good subsorter strength. Skin and neurovascular exams intact. Diagnostic [...] understand and agree with the above-stated plan. 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 Case discussed with Dr. Archuleta. * Progress note Date Encounter Last Documented by 12/19/2023 Established Patient Last [email or web address] foster on 12/19/2023; 10:33 AM, Primo Archuleta MD; [facility] Chief Complaint CC: Left proximal humerus fracture DOI: 09/18/2023 Nonoperative treatment HPI: 73-year-old ilaft-ezwh-lmevujim parkinsonian Israeli-speaking female Returns with daughter Continuing with physical [...] Height 65 in Oxygen Saturation 97 % * Progress note Date Encounter Last Documented by 11/14/2023 Procedure Last documented on 11/14/2023; 8:29 AM, Mandie Cruz PA-C; [facility], Reason For Visit Chief complaint: Follow-up fracture left proximal humerus Date of injury: 09/18/2023 History of Present Illness: Patient is a Israeli-speaking 73-year-old female who sustained a fracture to [...] X-Rays/X-Rays: Shoulder, left, min of 2 views ([id number]) EndCited * Progress note Date Encounter Last Documented by 10/15/2023 Procedure Last documented on 10/15/2023; 8:40 AM, Abram Clemons MD; [facility], Current Medication - Endocet 2.5-325 MG Oral [...] clos fx Follow Up/Appointment: 1 Month EndCited * Progress note Date Encounter Last Documented by 10/03/2023 Procedure Last documented on 10/03/2023; 9:26 AM, Abram Clemons MD; [facility], Current Medication - Endocet 2.5-325 MG Oral Tablet 0 days, 0 refills Physical Findings - Vitals taken 10/03/2023 09:06 am BP-Sitting 154/80 mmHg Pulse Rate-Sitting 75 bpm Temp-Temporal 96.9 F Height 65 in Weight 140 lbs Body Mass Index 23.3 kg/m2 Body Surface Area 1.7 m2 Oxygen Saturation 98 % Chief complaint: Follow-up fracture left proximal humerus History of Present Illness: This is a 73-year-old woman who sustained a fracture of her left proximal humerus on 09/18/2023. She was admitted to the hospital and consultation was performed by us while she was hospitalized. She was found to have a comminuted impacted fracture of the left proximal humerus. She was treated with a sling. She presents with her daughter. 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 She has no complaints today other than that the sling is uncomfortable. They do have some concerns about the blister on her upper arm and the bruising in her arm. Physical exam: The left upper extremity shows moderate swelling of the shoulder and arm. There is resolving ecchymosis over the medial aspect of the arm. There is a superficial fracture blister over the lateral aspect of the proximal arm. It is a partial-thickness blister that appears to be healing without sign of infection. Neurovascular exam is intact. Imaging: Radiographs of the left shoulder taken today are compared to the prior images. There is a comminuted mildly displaced fracture of the left proximal humerus. Reduction is still satisfactory. Impression: Fracture left proximal humerus Plan: I fitted the patient with a shoulder immobilizer. I asked her to wear that full- time for now. She may cleanse the blister with soap and water and apply a clean Band- Aid as needed. I asked the patient to return in 2 weeks for reexamination and x-ray of the left shoulder. We will plan to start an occupational therapy program at that time. Plan StartCited - Unsp fracture of upper end of left humerus, init for clos fx Follow Up/Appointment: 2 Weeks EndCited
--- OUTSIDE RECORDS SUMMARY | 2024-07-15 18:00 | XMS_ITS | Encounter Summary ---
Author Organization [facility] Address [address] [place] [address] Care Team Providers Care Calibration Engineer Name Role Reception ManagerDarin De Souza MD Primary Care Provider [phone] Encounter Details Date Type Department Care Team (Late st Contact Info) Description 06/29/2024 4:30 PM EST Treatment [address] [phone] Jarrell Pope PTA Closed fracture of proximal end of left humerus, unspecified fracture morphology, initial encounter (Primary Dx) Social History Tobacco Use Types Packs/Day Years Used Date Smoking Tobacco: Never Assessed Sex and Gender Information Value Date Recorded Sex Assigned at Not on file Gender Identity Not on file Sexual Orientation Not on file Job Start Date Occupation Industry Not on file Not on file Not on file documented as of this encounter Progress Notes * Jarrell Pope PTA - 06/29/2024 4:30 PM EST [facility] - Outpatient PHYSICAL THERAPY DAILY TREATMENT NOTE - OP Date: 06/29/2024 Visit Number: [id number] Patient Name: Julee Simental : 1950 Age: 74 y.o. Gender: female Diagnosis: ICD-10-CM ICD-9-CM 1. Closed fracture of proximal end of left humerus, unspecified fracture morphology, initial encounter S42.202A 812.00 Date of Onset/Surgery: 03/11/2024 Referring Provider: No ref. provider found Insurance: Payor: [facility] MED[facility] / Plan: [employer] ONE CARE / Product Type: *No Product type* / Patient Identified by: Jarrell Pope PTA Language: [place] Medications: No current outpatient medications on file prior to visit. No current facility-administered medications on file prior to visit. Allergies: has no allergies on file. Precautions: Fall risk: Yes Patient/Caregiver Goals: SUBJECTIVE Subjective Report: pt reports continued B shoulder pain with limited active motion Chart Reviewed: Yes Pain R shoulder 5/10, L shoulder 3/10 OBJECTIVE TREATMENT INTERVENTION: Modalities: None performed Procedures: Shld pulleys (facing pulleys) x 3 mins Seated rows with black tubing, 2x15 reps Seated B shld flexion with bolster on table, 2x15 Seated R and L shld abd with bolster on table, 2x10 ea PROM shoulder flexion, abd, ER each x10 x3 sets LUE Supine assisted wand chest press x10 x 2 sets (pt needing some assist on R UE) BUE chest press with martha x10 x3 sets in supine [place] t-band B shoullder ext in supine x10 x2 sets ASSESSMENT/Response to Treatment Good Improved tolerance to exs. Patient Education: Education provided: Yes Education Provided To: Patient utilizing Explanation mode(s) of education Response to Education: Verbal Understanding PLAN POC Development/Review: No Change in the Plan of Care; Participants: Patient Discussed with pt and her daughter that PT will likely be D/C'd to HOME EXERCISE PROGRAM over next few visits per POC Total Treatment Time: 30 Modalities: Therapeutic procedures: Documentation completed by Jarrell Pope PTA documented in this encounter Plan of Treatment Upcoming Encounters Date Type Department Care Team (Late st Contact Info) Description 07/20/2024 4:30 PM EST Treatment [facility] [address] [phone] Jarrell Pope PTA 07/22/2024 4:30 PM EST Treatment [facility] [address] [phone] Jarrell Pope PTA 07/30/2024 4:30 PM EST Treatment [facility] [address] [phone] [place], [place], PT documented as of this encounter Goals Goal Patient Goal Type Associated Problems Recent Progress Patient-Stated? Author LTGs General No Matty Puentes, PT Note: Pt will be independent with Left shoulder HEP Pt will increase Left shoulder AROM to 90 degrees AROM Pt will rpeort left shoulder flexion ERP no greater then 5/10 documented as of this encounter Visit Diagnoses Diagnosis Closed fracture of proximal end of left humerus, unspecified fracture morphology, initial encounter- Primary documented in this encounter Care Teams Calibration Engineer Relationship Specialty Start Date End Date Darin De Souza MD [address] [place] [address] PCP - General Pediatrics 04/30/24 documented as of this encounter
--- OUTSIDE RECORDS SUMMARY | 2024-07-15 18:00 | XMS_ITS | Clinical Summary ---
Author Organization [facility] Address [address] [address] Phone Care Team Providers Care Play Back Operator Name Role Phone Erika Ventura MD Primary Care Provider [phone] Allergies Active Allergy Reactions Criticality Noted Date Comments Aspirin 07/20/2020 Diclofenac 07/20/2020 Ketorolac 07/20/2020 Penicillins 07/20/2020 Medications amantadine (SYMMETREL) 100 MG capsule Take 100 mg by mouth 2 (two) times a day Active carvedilol (COREG) 3.125 MG tablet Take 12.5 mg by mouth in the morning and 12.5 mg in the evening. Take with meals. Active clopidogrel (PLAVIX) 75 MG tablet Take 75 mg by mouth 1 (one) time each day Active atorvastatin (LIPITOR) 40 MG tablet Take 40 mg by mouth 1 (one) time each day Active Multaq 400 MG tablet Take 1 tablet by mouth 2 (two) times a day 07/15/2020 Active 8 Hour Arthritis Pain Reliever 650 MG 8 hr tablet Take 1 tablet by mouth every 6 (six) to 8 (eight) hours if needed 06/29/2020 Active carbidopa-levod opa (SINEMET) 25-250 MG per tablet Take 1 tablet by mouth 3 (three) times a day Active ferrous sulfate (FeroSul) 325 (65 Fe) MG tablet Take 1 tablet (325 mg total) by mouth 3 (three) times a day with meals 90 tablet 2 05/03/2021 Active Eliquis 5 MG tabletIndicatio ns:Anemia in chronic kidney disease,Stage 3a chronic kidney disease (HCC) Take 1 tablet (5 mg total) by mouth in the morning and 1 tablet (5 mg total) in the evening. 60 tablet 2 09/06/2021 Active hydrALAZINE 25 MG tablet TAKE 1 TABLET (25 MG TOTAL) BY MOUTH 2 (TWO) TIMES A DAY 180 tablet 2 01/23/2022 Active DULCOLAX 5 MG EC tablet TAKE 1 TABLET BY MOUTH DAILY NEEDED FOR CONSTIPATION . DO NOT CRUSH, CHEW OR SPLIT 30 tablet 1 01/23/2022 Active Active Problems Problem Noted Date Diagnosed Date Restless leg syndrome 11/14/2022 Cyst of skin 11/08/2022 Stage 3a chronic kidney disease 05/03/2021 Anemia in chronic kidney disease 05/03/2021 Chronic kidney disease due to benign hypertensio n 12/02/2020 Renal osteodystrophy 12/02/2020 Essential (primary) hypertension 08/16/2020 Chronic kidney disease 08/16/2020 Encounters Date Type Department Care Team Description 05/12/2024 1:00 PM EST [facility] [address] [address] Bladimir Kurtz MD Stage 3a chronic kidney disease (HCC) (Primary Dx); Renal osteodystrophy; Essential (primary) hypertension from Last 3 Months Immunizations Name Administration Dates Next Due Influenza, Unspecified 04/18/2021,2019,08/27/2019,06/05/2018,11/2012,07/06/2011 Pneumococcal Polysaccharide 04/18/2020 Tdap 09/01/2021 Family History Relation Status Comments Father Mother Social History Tobacco Use Types Packs/Day Years Used Date Smoking Tobacco: Never Smokeless Tobacco: Never Tobacco Cessation:Counseling Given: Not Answered Alcohol Use Standard Drinks/Week Comments Never 0 (1 standard drink = 0.6 oz pur e alcohol) Comments Unknown Sex and Gender Information Value Date Recorded Sex Assigned at Not on file Legal Sex Female 4:58 PM EST Gender Identity Not on file Sexual Orientation Not on file Last Filed Vital Signs Vital Sign Reading Time Taken Comments Blood Pressure 100/60 05/12/2024 1:04 PM EST Pulse 69 05/08/2023 1:58 PM EST Temperature - - Respiratory Rate - - Oxygen Saturation 99% 05/08/2023 1:58 PM EST Inhaled Oxygen Concentration - - Weight 62.6 kg (138 lb) 05/12/2024 1:04 PM EST Height 165.1 cm (5' 5 ) 05/03/2021 3:31 PM EST Body Mass Index 22.96 05/03/2021 3:31 PM EST Plan of Treatment Upcoming Encounters Date Type Department Care Team (Late st Contact Info) Description 05/12/2025 3:00 PM EST Office Visit [facility] [address] [address] Bladimir Kurtz MD [address] [facility] [address] [place] [phone] Health Maintenance Due Date Last Done Comments Breast Cancer Screening 1950 Colorectal Cancer Screening: Annual FOBT 1999 Colorectal Cancer Screening: Colonoscopy 1999 Colorectal Cancer Screening: Sigmoidoscopy 1999 Pneumococcal Vaccine: 65+ Years (2 of 2 - PCV) 04/18/2021 04/18/2020 Influenza Vaccine (#1) 2024 1, 05/16/2020, 08/27/2019, Additional history exists Hepatitis B Vaccine Aged Out No longe r eligible based on patient's age to complete this topic Procedures Procedure Name Priority Date/Time Associated Diagnosis Comments PTH, INTACT Routine 05/11/2024 8:45 AM EST URINE CULTURE Routine 05/11/2024 8:45 AM EST MAGNESIUM Routine 05/11/2024 8:45 AM EST VITAMIN D 25 HYDROXY Routine 05/11/2024 8:45 AM EST URINE ALBUMIN / CREATININE RATIO Routine 05/11/2024 8:45 AM EST PROTEIN / CREATININE RATIO, URINE Routine 05/11/2024 8:45 AM EST CBC Routine 05/11/2024 8:45 AM EST URINALYSIS WITH MICROSCOPIC Routine 05/11/2024 8:45 AM EST RP10+2AC (HC) Routine 05/11/2024 8:45 AM EST RESULT Routine 05/11/2024 8:45 AM EST MICROSCOPIC EXAMINATION - DO NOT USE Routine 05/11/2024 8:45 AM EST from Last 3 Months Results * (ABNORMAL) RP10+2AC (05/11/2024 8:45 AM EST) Pathologist [facility] Glucose 98 70 - 99 mg/dL [facility] BUN 20 8 - 27 mg/dL [facility] Creatinine 1.19(H) 0.57 - 1.00 mg/dL [facility] eGFR CKD-EPI CR 2020 48(L) >59 mL/min/1.7 3 [facility] BUN/Creatinine Ratio 17 12 - 28 [facility] Sodium 138 134 - 144 mmol/L [facility] Potassium 4.9 3.5 - 5.2 mmol/L [facility] Chloride 105 96 - 106 mmol/L [facility] Bicarbonate (CO2) 22 20 - 29 mmol/L [facility] Anion Gap 11.0 10.0 - 18.0 mmol/L [facility] Calcium 9.2 8.7 - 10.3 mg/dL [facility] Total Protein 6.2 6.0 - 8.5 g/dL [facility] Albumin 3.9 3.8 - 4.8 g/dL [facility] Globulin 2.3 1.5 - 4.5 g/dL [facility] Uric Acid 4.6 3.1 - 7.9 mg/dL [facility] Comment:Therapeutic target f or gout patients: <6.0 Phosphorus 4.0 3.0 - 4.3 mg/dL [facility] 05/11/2024 8:45 AM EST 05/11/2024 Comment: Bladimir Kurtz MD LAB [id number] SOLICITED RESULTS Final Result [facility] [address] [place] [address] * Result (05/11/2024 8:45 AM EST) Result No growth [facility] 05/11/2024 8:45 AM EST 05/11/2024 Bladimir Kurtz MD LAB MICROBIOLOGY - GENERAL OR DERABLES Final Result [facility] [address], [address] [place] [address] * Microscopic Examination (05/11/2024 8:45 AM EST) WBC, Urine None seen 0 - 5 /hpf [facility] RBC, Urine 0-2 0 - 2 /hpf [facility] Squamous Epithelial, Urine None seen 0 - 10 /hpf [facility] Casts None seen None seen /lpf [facility] Bacteria, Urine None seen None seen/Few [facility] 05/11/2024 8:45 AM EST 05/11/2024 Bladimir Kurtz MD LAB MICROBIOLOGY - GENERAL OR DERABLES Final Result Performing Organization Address [facility] de Phone Number [facility] [place] [address] [place] [address] * (ABNORMAL) Protein, Total, Random Urine w/Creatinine (Protein/Creat Ratio) (05/11/2024 8:45 AM EST) Creatinine, Ur 126.4 Not Estab. mg/dL [facility] Protein, Ur 43.9 Not Estab. mg/dL [facility] Urine Protein/Creati nine Ratio 347(H) 0 - 200 mg/g creat [facility] 05/11/2024 8:45 AM EST 05/11/2024 Comment:UC us Bladimir Kurtz MD LAB URINE ORDERABLES Final Re sult Performing Organization Address [facility] Co de Phone Number [facility] [place] [address] [place] [address] * (ABNORMAL) Urine Albumin / Creatinine Ratio (05/11/2024 8:45 AM EST) Urine Microalbumin 133.6 Not Estab. ug/mL [facility] Microalbumin/Crea tinine Ratio 106(H) 0 - 29 mg/g creat [facility] Comment: ? Normal: ?0 - ??29 ? Moderately increased: 30 - 300 ? Severely increased: ? >300 05/11/2024 8:45 AM EST 05/11/2024 Comment: Bladimir Kurtz MD LAB URINE ORDERABLES Final Re sult Performing Organization Address [facility] Co de Phone Number [facility] [address] [place] [address] * Vitamin D 25 Hydroxy (05/11/2024 8:45 AM EST) Vitamin D, 25-OH, Total 39.5 30.0 - 100.0 ng/mL [facility] Comment: Vitamin D deficiency has been defined by the [employer] of [employer] and an Endocrine Society practice guideline as a level of serum 25-OH vitamin D less than 20 ng/mL (1,2). The Endocrine Society went on to further define vitamin D insufficiency as a level between 21 and 29 ng/mL (2). 1. IOM ([employer] of Medicine). 2010. Dietary reference ?? intakes for calcium and D. [place]: The ?? National [employer]. 2. Alicia MF, Minh NC, Natasha CARBAJAL, et al. ?? Evaluation, treatment, and prevention of vitamin D ?? deficiency: an Endocrine Society clinical practice ?? guideline. JCEM. 2010; 96(7):1911-30. 05/11/2024 8:45 AM EST 05/11/2024 Comment: Bladimir Kurtz MD LAB BLOOD ORDERABLES Final Re sult Performing Organization Address [facility] Co de Phone Number [facility] [place] [address] [place] [address] * (ABNORMAL) Urinalysis with microscopic (05/11/2024 8:45 AM EST) Specific [place], Urine 1.019 1.005 - 1.030 [facility] [phone] pH Urine 6.5 5.0 - 7.5 [facility] [phone] Color, Urine Yellow Yellow [facility] Appearance Urine Clear Clear [facility] [place] WBC Esterase Urine Trace(A) Negative [facility] Protein, Ur 1+(A) Negative/Tra ce [facility] Glucose, Ur Negative Negative [facility] [phone] Ketones, Urine Trace(A) Negative [facility] [place] Blood Urine Negative Negative [facility] Bilirubin Urine Negative Negative [facility] [place] [phone] Urobilinogen Urine 0.2 0.2 - 1.0 mg/dL [facility] Nitrite, Urine Negative Negative [facility] [place] Microscopic Examination See below: [facility] [phone] Comment:Microscopic was nima cated and was performed. 05/11/2024 8:45 AM EST 05/11/2024 us Bladimir Kurtz MD LAB URINE ORDERABLES Final Re sult [facility] [address] [place] [address] * (ABNORMAL) CBC (05/11/2024 8:45 AM EST) WBC 3.3(L) 3.4 - 10.8 x10E3/uL [facility] Comment: Effective May 25, 2024 profile [id number] WBC will be made ??non-orderable as a stand-alone order code. RBC 4.08 3.77 - 5.28 x10E6/uL [facility] Hemoglobin 12.9 11.1 - 15.9 g/dL [facility] Hematocrit 40.1 34.0 - 46.6 % [facility] MCV 98(H) 79 - 97 fL [facility] MCH 31.6 26.6 - 33.0 pg [facility] MCHC 32.2 31.5 - 35.7 g/dL [facility] RDW 12.0 11.7 - 15.4 % [facility] Platelets 153 150 - 450 x10E3/uL [facility] 05/11/2024 8:45 AM EST 05/11/2024 Bladimir Kurtz MD LAB BLOOD ORDERABLES Final Re sult Performing Organization Address [facility]/ZIP Co de Phone Number [facility] [address] [place] [address] * Urine Culture (05/11/2024 8:45 AM EST) Culture Result, Urine Final report [facility] 05/11/2024 8:45 AM EST 05/11/2024 Comment:KIM Bladimir Kurtz MD LAB URINE ORDERABLES Final Re sult Performing Organization Address [facility] Co de Phone Number [facility] [address], [address] [place] [address] * (ABNORMAL) PTH, Intact (05/11/2024 8:45 AM EST) PTH 67(H) 15 - 65 pg/mL [facility] 05/11/2024 8:45 AM EST 05/11/2024 Comment:KIM Bladimir Kurtz MD LAB BLOOD ORDERABLES Final Re sult Performing Organization Address City/[facility]/ZIP Co de Phone Number [facility] [address] [place] [address] * Magnesium (05/11/2024 8:45 AM EST) Magnesium 2.1 1.6 - 2.3 mg/dL [facility] 05/11/2024 8:45 AM EST 05/11/2024 Comment:UC us Bladimir Kurtz MD LAB BLOOD ORDERABLES Final Re sult [facility] [address] [place] [address] from Last [address] [place] [address] [place] [address] [place] [phone] [facility] ([id number]) [place] [address] ([id number]) [place]IVER[place] [phone] Care Teams Play Back Operator Relationship Specialty Start Date End Date Erika Ventura MD [address], [place] PCP - General Internal Medicine 07/18/20
--- OUTSIDE RECORDS SUMMARY | 2024-07-15 18:00 | XMS_ITS | Clinical Summary ---
Author Organization [address] [facility] Address [address] [place] [address] Phone Care Team Providers Care Tone Cabinet Assembler Name Role Production RepairerDarin De Souza MD Primary Care Provider [phone] Active Problems Problem Noted Date Diagnosed Date Parkinson's disease 05/07/2024 Encounters Date Type Department Care Team Description 07/15/2024 4:30 PM EST Treatment [address] [phone] Matty Puentes, RASTA Closed fracture of proximal end of left humerus, unspecified fracture morphology, initial encounter (Primary Dx) 07/13/2024 4:30 PM EST Treatment [address] [phone] Jarrell Pope, EXTRACTOR MACHINE OPERATOR Arrived 07/06/2024 4:30 PM EST Treatment [address] [phone] Jarrell Pope, EXTRACTOR MACHINE OPERATOR Closed fracture of proximal end of left humerus, unspecified fracture morphology, initial encounter (Primary Dx) 06/29/2024 4:30 PM EST Treatment [address] [phone] Jarrell Pope, EXTRACTOR MACHINE OPERATOR Closed fracture of proximal end of left humerus, unspecified fracture morphology, initial encounter (Primary Dx) 06/25/2024 4:00 PM EST Treatment [address] [phone] Matty Puentes, PT Closed fracture of proximal end of left humerus, unspecified fracture morphology, initial encounter (Primary Dx) 06/09/2024 4:30 PM EST Treatment [facility] [address] [phone] Jarrell Pope, EXTRACTOR MACHINE OPERATOR Closed fracture of proximal end of left humerus, unspecified fracture morphology, initial encounter 06/02/2024 4:30 PM EST Treatment [address] [phone] Jarrell Pope, EXTRACTOR MACHINE OPERATOR History of left shoulder fracture (Primary Dx) 05/28/2024 5:30 PM EST Treatment [address] [phone] Matty Puentes, PT History of left shoulder fracture (Primary Dx) 05/27/2024 8:44 AM EST - 05/27/2024 11:59 PM EST Hospital Encounter [facility] Bone Density [address] [place] [phone] Personal history of (healed) traumatic fracture Discharge Disposition: Home or Self Care 05/07/2024 1:15 PM EST Treatment [address] [phone] Matty Puentes, PT Parkinson's disease, unspecified whether dyskinesia present, unspecified whether manifestations fluctuate (CMS/HCC) (Primary Dx) 05/04/2024 10:00 AM EST Treatment [address] [phone] Tommy Woodward, EXTRACTOR MACHINE OPERATOR 04/28/2024 10:30 AM EST Treatment [address] [phone] Steffen Martínez, EXTRACTOR MACHINE OPERATOR from Last 3 Months Social History Tobacco Use Types Packs/Day Years Used Date Smoking Tobacco: Never Assessed Sex and Gender Information Value Date Recorded Sex Assigned at Not on file Gender Identity Not on file Sexual Orientation Not on file Job Start Date Occupation Industry Not on file Not on file Not on file Plan of Treatment Upcoming Encounters Date Type Department Care Team (Late st Contact Info) Description 07/20/2024 4:30 PM EST Treatment [facility] [address] [phone] JeromylaurenteresoJarrell, EXTRACTOR MACHINE OPERATOR 07/22/2024 4:30 PM EST Treatment [facility] [address] [phone] Jeromyten Jarrell, EXTRACTOR MACHINE OPERATOR 07/30/2024 4:30 PM EST Treatment [facility] [address] [phone] Indiana Wilkinson, PT Health Maintenance Due Date Last Done Comments Breast Cancer Screening 1950 Zoster Vaccines (1 of 2) 01/16/2000 Pneumococcal Vaccine: 65+ Years (2 of 2 - PCV) 04/18/2021 04/18/2020 Cholesterol Screening (Lipid Panel) 01/14/2024 Depression Screening 01/14/2024 Falls Risk Assessment 01/14/2024 Hepatitis C Screening 01/14/2024 Medicare Annual Wellness Visit 01/14/2024 Social Influencers of Health Screening 01/14/2024 COVID-19 Vaccine ( - season) 2024 Influenza Vaccine (#1) 2024 , 05/16/2020, 08/27/2019, Additional history exists Hypertension/CHF/CAD Annual BMP Blood Test 04/28/2024 RSV Immunization Patients 60+ Years Old (1 - 1-dose 75+ series) 2025 Colorectal Cancer Screening: FIT-DNA (Cologuard) 05/25/2027 05/25/2024, 05/25/2024 DTaP,Tdap,and Td Vaccines (2 - Td or Tdap) 09/02/2031 09/01/2021 Osteoporosis Screening (Bone Density Screening) 05/27/2034 05/27/2024 HIB Vaccines Aged Out No longer eligi ble based on patient's age to complete this topic HPV Vaccines Aged Out No longer eligi ble based on patient's age to complete this topic Hepatitis A Vaccines Aged Out No long er eligible based on patient's age to complete this topic Hepatitis B Vaccines Aged Out No long er eligible based on patient's age to complete this topic IPV Vaccines Aged Out No longer eligi ble based on patient's age to complete this topic MMR Vaccines Aged Out No longer eligi ble based on patient's age to complete this topic Meningococcal ACWY Vaccine Aged Out N o longer eligible based on patient's age to complete this topic RSV Immunization Patients Under 20 months Aged Out No longer eligible based on patient's age to complete this topic Varicella Vaccines Aged Out No longer eligible based on patient's age to complete this topic Goals Goal Patient Goal Type Associated Problems Recent Progress Patient-Stated? Author LTGs General No Matty Puentes, PT Note: Pt will be independent with Left shoulder HEP Pt will increase Left shoulder AROM to 90 degrees AROM Pt will rpeort left shoulder flexion ERP no greater then 5/10 Procedures Procedure Name Priority Date/Time Associated Diagnosis Comments BD BONE DENSITY DXA AXIAL SKELETON Routine 05/27/2024 9:09 AM EST Personal history of (healed) traumatic fracture from Last 3 Months Results * BD Bone Density DXA Axial Skeleton (05/27/2024 9:09 AM EST) Anatomical Region Laterality Modality Wrist, Hip, L-spine Bone Densito metry 05/27/2024 9:32 AM EST Impressions 05/27/2024 9:33 AM EST Osteoporosis. ? [id number] -------- FINAL REPORT -------- Dictated By: Margi Szymanski Dictated Date: 05/27/2024 09:32 ET Assigned Physician: Margi Szymanski Reviewed and Electronically Signed By: Margi Szymanski Signed Date: 05/27/2024 09:33 ET Workstation ID: [id number] Transcribed By: Self Edit Transcribed Date: 05/27/2024 09:32 ET Narrative 05/27/2024 9:33 AM EST History: Low estrogen state due to menopause. Personal history of fracture. Comparison: No comparison imaging at this institution. Findings: Bone densitometry is performed utilizing dual energy x-ray absorptiometry (DXA) in the Lunar [employer]y unit. The lumbar spine and proximal femora are evaluated in the AP projection. The FRAX questionaire was completed. The results indicate osteoporosis, with a lumbar spine T-score of -3.0. The Z score is -1.1, indicating low bone mineral density for age. ??The detailed DEXA report will be mailed to the referring physician's office. [employer]emur FRAX: 10-year Probability of Fracture: Major Osteoporotic 13.8 percent ??Hip 3.7 percent. Procedure Note Margi Szymanski MD - 05/27/2024 History: Low estrogen state due to menopause. Personal history offracture. Comparison: No comparison imaging at this institution. Findings: Bone densitometry is performed utilizing dual energy x-ray absorptiometry(DXA) in the [employer]ounded[employer]y unit. The lumbar spine and proximal femora areevaluated in the AP projection. The FRAX questionaire was completed. The results indicate osteoporosis, with a lumbar spine T-score of -3.0.The Z score is -1.1, indicating low bone mineral density for age. Thedetailed DEXA report will be mailed to the referring physician's office. [employer]Femur FRAX: 10-year Probability of Fracture: Major Osteoporotic 13.8percent Hip 3.7 percent. IMPRESSION: Osteoporosis. [id number] -------- FINAL REPORT -------- Dictated By: Margi Szymanski Dictated Date: 05/27/2024 09:32 ET Assigned Physician: Margi Szymanski Reviewed and Electronically Signed By: Margi Szymanski Signed Date: 05/27/2024 09:33 ET Workstation ID: [id number] Transcribed By: Self Edit Transcribed Date: 05/27/2024 09:32 ET Julissa Leon NP IMG DXA PROCEDURES from Last 3 Months Care Teams Tone Cabinet Assembler Relationship Specialty Start Date End Date Darin De Souza MD [address] [place] [id number] PCP - General Pediatrics 04/30/24
--- OUTSIDE RECORDS SUMMARY | 2024-07-15 18:00 | XMS_ITS | Encounter Summary ---
Author Organization [facility] Address [address] [place] [address] Care Team Providers Care Reprographics Associate Name Role Coater Brake LiningsDarin De Souza MD Primary Care Provider [phone] Reason for Visit * Therapy (Routine) - Authorized Specialty Diagnoses / Procedures Referred By Iker erickson Referred To Contact Physical Therapy Diagnoses Closed fracture of proximal end of left humerus, unspecified fracture morphology, initial encounter Rocio Celsete PA [address] [place] [address] [facility] Physical Therapy [address] [address] Referral ID Status Reason Start Date Expiration Date Visits Requested Visits Authorized [id number] Authorized Specialty Services Required 05/28/2024 07/24/2024 9 9 Encounter Details Date Type Department Care Team ([facility] st Contact Info) Description 07/13/2024 4:[address] [facility] [address] [address] Jarrell Pope PTA Arrived Social History Tobacco Use Types Packs/Day Years Used Date Smoking Tobacco: Never Assessed Sex and Gender Information Value Date Recorded Sex Assigned at Not on file Gender Identity Not on file Sexual Orientation Not on file Job Start Date Occupation Industry Not on file Not on file Not on file documented as of this encounter Progress Notes * Jarrell Pope PTA - 07/13/2024 4:[address] [facility] - Outpatient PHYSICAL THERAPY DAILY TREATMENT NOTE - OP Date: 07/13/2024 Visit Number: 10 Patient Name: Julee Simental : 1950 Age: 74 y.o. Gender: female Diagnosis: No diagnosis found. Date of Onset/Surgery: 03/11/2024 Referring Provider: Rocio Celeste PA Insurance: Payor: [facility] MEDICARE / Plan: [facility]ARE / Product Type: *No Product type* / Patient Identified by: Jarrell Pope PTA Language: Pashto Medications: No current outpatient medications on file prior to visit. No current facility-administered medications on file prior to visit. Allergies: has no allergies on file. Precautions: Fall risk: Yes Patient/Caregiver Goals: SUBJECTIVE Subjective Report: pt reports less pain in bilat shoulders and improving ROM. Feels like bones are grinding in R shoulder. Chart Reviewed: Yes Pain R shoulder 10, L shoulder 3/10 OBJECTIVE TREATMENT INTERVENTION: Modalities: None performed Procedures: Shld pulleys x 30 B x 2 sets Seated rowing with green tubing, 3x15 reps Seated B shld flexion with bolster on table, 2x15 reps Seated B shld chest press with wand, 3 x 8-10 reps ea Supine wand chest press x 10 x 2 sets [place] t-band horiz abd pull in supine x 6-8 reps x 3 sets PROM R and L shld flexion, abd, ER, 2x10 ea Gave written copy of seated rows and supine horiz abd for home exercise program, Gave yellow, orange and green tband for home use ASSESSMENT/Response to Treatment Good Improved tolerance to exs. Complained of R shoulder pain several times during treatment Patient Education: Education provided: Yes Education Provided To: Patient utilizing Explanation mode(s) of education Response to Education: Verbal Understanding PLAN POC Development/Review: No Change in the Plan of Care; Participants: Patient Total Treatment Time: 30 Modalities: Therapeutic procedures: Documentation completed by Jarrell Pope PTA documented in this encounter Plan of Treatment Upcoming Encounters Date Type Department Care Team (Late st Contact Info) Description 07/20/2024 4:30 PM EST Treatment [address] [address] Jarrell Pope, SEXOLOGIST 07/22/2024 4:[address] [facility] [address] [phone] Jarrell Pope, SEXOLOGIST 07/30/2024 4:[address] [facility] [address] [phone] Indiana Wilkinson, PT documented as of this encounter Goals Goal Patient Goal Type Associated Problems Recent Progress Patient-Stated? Author LTGs General No Matty Puentes, PT Note: Pt will be independent with Left shoulder HEP Pt will increase Left shoulder AROM to 90 degrees AROM Pt will rpeort left shoulder flexion ERP no greater then 5/10 documented as of this encounter Visit Diagnoses Not on filedocumented in this encounter Care Teams Reprographics Associate Relationship Specialty Start Date End Date Darin De Souza MD [address] [place] [address] PCP - General Pediatrics 04/30/24 documented as of this encounter
--- OUTSIDE RECORDS SUMMARY | 2024-07-15 18:00 | XMS_ITS | Encounter Summary ---
[facility] Organization [facility] Address [address] [place] [address] Care Team Providers Care Rubber Goods Tester Name Role Solar Sales AssessorDarin De Souza MD Primary Care Provider [phone] Reason for Visit * Therapy (Routine) - Authorized Specialty Diagnoses / Procedures Referred By Iker erickson Referred To Contact Physical Therapy Diagnoses Closed fracture of proximal end of left humerus, unspecified fracture morphology, initial encounter Rocio Celeste PA [address] [place] [address] [facility] Physical Therapy [address] [address] Referral ID Status Reason Start Date Expiration Date Visits Requested Visits Authorized [id number] Authorized Specialty Services Required 05/28/2024 07/24/2024 9 9 Encounter Details Date Type Department Care Team (Late st Contact Info) Description 07/06/2024 4:30 PM EST Treatment [facility] [address] [phone] Jarrell Pope PTA Closed fracture [...] Progress Notes * Jarrell Pope PTA - 07/06/2024 4:30 PM EST [facility] - Outpatient PHYSICAL THERAPY DAILY TREATMENT NOTE - OP Date: 07/06/2024 Visit Number: 9 Patient Name: Julee Simental : 1950 Age: 74 y.o. Gender: female Diagnosis: ICD-10-CM ICD-9-CM 1. Closed fracture of proximal end of left humerus, unspecified fracture morphology, initial encounter S42.202A 812.00 Date of Onset/Surgery: 03/11/2024 Referring Provider: Rocio Celeste PA Insurance: [facility] / Plan: [facility] / Product Type: *No Product type* / Patient Identified by: Jarrell Pope PTA Language: Persian Medications: No current outpatient medications on file prior to visit. No current facility-administered medications on file prior to visit. Allergies: has no allergies on file. Precautions: Fall risk: Yes Patient/Caregiver Goals: SUBJECTIVE Subjective Report: pt reports her R shoulder clicks a lot and has pain and limited movement > L shld Chart Reviewed: Yes Pain R shoulder 5/10, L shoulder 3/10 OBJECTIVE TREATMENT INTERVENTION: Modalities: None performed Procedures: Shld pulleys (facing pulleys) x 3 mins Standing B shld ext with black tubing, 2x10 Seated B shld flexion with bolster on table, 2x15 Seated R and L shld abd with bolster on table, 2x10 ea Supine assisted wand chest press x10 x 2 sets (pt needing some assist on R UE) BUE chest press with martha x10 x2 sets in sitting [place] t-band horiz abd pull in supine ASSESSMENT/Response to Treatment Good Improved tolerance to [...] Info) Description 07/20/2024 4:30 PM EST Treatment [facility] [address] [phone] Jarrell Pope, SOLVENT PROCESS EXTRACTOR OPERATOR 07/22/2024 4:30 PM EST Treatment [facility] [address] [phone] Jarrell Pope, SOLVENT PROCESS EXTRACTOR OPERATOR 07/30/2024 4:30 PM EST Treatment [facility] [address] [phone] Indiana Wilkinson, RASTA documented as of this encounter Goals Goal [...] Primary documented in this encounter Care Teams Rubber Goods Tester Relationship Specialty Start Date End Date Darin De Souza MD [address] [place] [address] PCP - General Pediatrics 04/30/24 documented as of this encounter
--- OUTSIDE RECORDS SUMMARY | 2024-07-15 18:00 | XMS_ITS | Encounter Summary ---
Author Organization [facility] Address [address] [facility] [address] [place] [address] Phone Care Team Providers Care Event Sales Assistant Name Role Phone Erika Ventura MD Primary Care Provider [phone] Encounter Details Date Type Department Care Team ([facility] Contact Info) Description 12/09/2020 Orders Only [facility] [address] [place] [address] Bladimir Kurtz MD [address] [address] Stage 3a chronic kidney disease (HCC) Social History Tobacco Use Types Packs/Day Years Used Date Smoking Tobacco: Never Smokeless Tobacco: Never Alcohol Use Standard Drinks/Week Comments Never 0 (1 standard drink = 0.6 oz pur e alcohol) Comments Unknown Sex and Gender Information Value Date Recorded Sex Assigned at Not on file Legal Sex Female 4:58 PM EST Gender Identity Not on file Sexual Orientation Not on file documented as of this encounter Plan of Treatment Upcoming Encounters Date Type Department Care Team (Late Contact Info) Description 05/12/2025 3:00 PM EST Office Visit [facility] [address] [address] Bladimir Kurtz MD [address] [address] documented as of this encounter Procedures Procedure Name Priority Date/Time Associated Diagnosis Comments PROTEIN / CREATININE RATIO, URINE Routine 12/06/2020 7:45 AM EDT Stage 3a chronic kidney disease (HCC) URINE ALBUMIN / CREATININE RATIO Routine 12/06/2020 7:45 AM EDT Stage 3a chronic kidney disease (HCC) URINALYSIS WITH MICROSCOPIC Routine 12/06/2020 7:45 AM EDT Stage 3a chronic kidney disease (HCC) URINE CULTURE Routine 12/06/2020 7:45 AM EDT Stage 3a chronic kidney disease (HCC) VITAMIN D 25 HYDROXY Routine 12/05/2020 2:17 PM EDT Stage 3a chronic kidney disease (HCC) CBC Routine 12/05/2020 2:17 PM EDT Stage 3a chronic kidney disease (HCC) PTH, INTACT Routine 12/05/2020 2:17 PM EDT Stage 3a chronic kidney disease (HCC) MAGNESIUM Routine 12/05/2020 2:17 PM EDT Stage 3a chronic kidney disease (HCC) ALBUMIN Routine 12/05/2020 2:17 PM EDT Stage 3a chronic kidney disease (HCC) RENAL FUNCTION PANEL Routine 12/05/2020 2:17 PM EDT Stage 3a chronic kidney disease (HCC) documented in this encounter Results * Protein, Total, Random Urine w/Creatinine (Protein/Creat Ratio) (12/06/2020 7:45 AM EDT) Protein/Creatine Ratio 0.13 (0-0.2) [facility] Protein, Urine 5 MG/DL [facility] Comment: The urine microalbumin test is designed to monitor renal function. When screening for Bence Martínez proteinuria, urine electrophoresis is recommended. Creatinine, Urine 35.6 MG/DL [facility] Comment: Testing performed or reported by [facility], a Service of [facility], [address] [place] [address] Carol Hagan MD, Guide Escort Urine (Urine, Clean Catch) 12/06/2020 7:45 AM EDT 12/06/2020 6:42 PM EDT Bladimir Kurtz MD LAB URINE ORDERABLES Final Re sult Performing Organization Address [facility] de Phone Number [facility] * Urine Culture (12/06/2020 7:45 AM EDT) Specimen Description See Comment See Comment See Comment See Comment [facility] Comment: CLEAN CATCH (URINE) NONE Mixed bacterial amrit, indicative of urogenital contamination. FINAL 12/08/2020 Testing performed or reported by [facility], a Service of [facility], [address] [place] [address] Cortez Montoya MD, Guide Escort Urine (Urine, Clean Catch) 12/06/2020 7:45 AM EDT 12/06/2020 6:42 PM EDT Bladimir Kurtz MD LAB URINE ORDERABLES Final Re sult Performing Organization Address [facility] de Phone Number [facility] * Urine Albumin / Creatinine Ratio (12/06/2020 7:45 AM EDT) Urine Microalbumin <12.0 (<20) MG/L [facility] Comment: The urine microalbumin test is designed to monitor renal function. When screening for Bence Martínez proteinuria, urine electrophoresis is recommended. Microalbumin/Creati nine Ratio Unable to calculate (0-20) MG/GM [facility] Microalb/Creat Ratio 35.6 MG/DL [facility] Comment: Testing performed or reported by [facility], a Service of [facility], [address] [place] [address] Carol Hagan MD, Guide Escort Urine (Urine, Clean Catch) 12/06/2020 7:45 AM EDT 12/06/2020 6:42 PM EDT Bladimir Kurtz MD LAB URINE ORDERABLES Final Re sult Performing Organization Address [facility] de Phone Number [facility] * Urinalysis with microscopic (12/06/2020 7:45 AM EDT) Pathologist [facility] Appearance COLORLESS [facility] Comment:CLEAR Specific [place] 1.008 (1.002-1. 030) [facility] pH Urine 7.0 (5.0-8.0) [facility] Albumin, Urine NEGATIVE (NEG) [facility] Glucose, Ur NEGATIVE (NEG) [facility] Ketones, Urine NEGATIVE (NEG) [facility] Bilirubin Urine NEGATIVE (NEG) [facility] Hemoglobin Presence in Urine NEGATIVE (NEG) [facility] Nitrite, Urine NEGATIVE (NEG) [facility] Leukocyte Esterase Urine NEGATIVE (NEG) [facility] Urobilinogen Urine NORMAL (NORM) MG/DL [facility] WBC, Urine 1 (0-5) /HPF [facility] RBC, Urine 1 (0-3) /HPF [facility] Squamous Epithelial, Urine <1 (0-8) /HPF [facility] Comment: Testing performed or reported by [facility], a Service of [address] [address] Carol Hagan MD, Guide Escort Urine (Urine, Clean Catch) 12/06/2020 7:45 AM EDT 12/06/2020 6:42 PM EDT Bladimir Kurtz MD LAB URINE ORDERABLES Final Re sult Performing Organization Address [facility] de Phone Number [facility] * Albumin (12/05/2020 2:17 PM EDT) [facility] Albumin 4.0 (3.4-4.8) GM/DL [facility] Comment: Testing performed or reported by [facility], a Service of [facility], [address] [place] [phone] Carol Hagan MD, Guide Escort Blood (Blood, Venous) 12/05/2020 2:17 PM EDT 12/05/2020 2:20 PM EDT Bladimir Kurtz MD LAB BLOOD ORDERABLES Final Re sult Performing Organization Address [facility] de Phone Number [facility] * Magnesium (12/05/2020 2:17 PM EDT) [facility] Magnesium 1.9 (1.6-2.3) mg/dL [facility] Comment: Testing performed or reported by [facility], a Service of [facility], [address] [place] [id number] Carol Hagan MD, Guide Escort Blood (Blood, Venous) 12/05/2020 2:17 PM EDT 12/05/2020 2:20 PM EDT Bladimir Kurtz MD LAB BLOOD ORDERABLES Final Re sult Performing Organization Address [facility] Co de Phone Number [facility] * (ABNORMAL) CBC (12/05/2020 2:17 PM EDT) Pathologist [facility] White Blood Cells 3.9(L) (4.0-11.0) K/MM3 [facility] RBC 3.74(L) (4.20-5.40 ) M/MM3 [facility] Hgb 11.5(L) (11.7-15.5 ) GM/DL [facility] Hematocrit 36.7 (35.7-45.8 ) % [facility] MCV 98.1 (80.0-100. 0) FL [facility] MCH 30.7 (27.0-34.0 ) PG [facility] MCHC 31.3(L) (33.0-37.0 ) g/dL [facility] Platelets 169 (150-460) K/MM3 [facility] RDW-SD 45.9 (<47.0) FL [facility] MPV 11.0 (9.4-12.4) FL [facility] nRBC Count 0.0 #/100 WBC'S [facility] NRBC Absolute 0.0 K/MM3 [facility] Comment: Testing performed or reported by [facility], a Service of [facility], [address] [place] [id number] Carol Hagan MD, Guide Escort Blood (Blood, Venous) 12/05/2020 2:17 PM EDT 12/05/2020 2:20 PM EDT Bladimir Kurtz MD LAB BLOOD ORDERABLES Final Re sult Performing Organization Address City/[facility]/ZIP Co de Phone Number [facility] * Vitamin D 25 Hydroxy (12/05/2020 2:17 PM EDT) Vitamin D, 25-Hydroxy 28.4 (20-50) NG/ML [facility] Comment: Testing performed or reported by [facility], a Service of [facility], [address] [place] [phone] Carol Hagan MD, Guide Escort Blood (Blood, Venous) 12/05/2020 2:17 PM EDT 12/05/2020 2:20 PM EDT us Bladimir Kurtz MD LAB BLOOD ORDERABLES Final Re sult [facility] * (ABNORMAL) Renal Function Panel (12/05/2020 2:17 PM EDT) Glucose 128(H) (70-99) MG/DL [facility] BUN 13 (8-23) MG/DL [facility] Creatinine 1.3(H) (0.5-1.0) MG/DL [facility] Sodium 137 (133-145) MMOL/L [facility] Potassium 4.8 (3.6-5.2) MMOL/L [facility] Chloride 103 (98-107) MMOL/L [facility] Bicarbonate (CO2) 25 (22-29) MMOL/L [facility] Anion Gap 9 (4-17) [facility] Albumin 4.0 (3.4-4.8) GM/DL [facility] Calcium 9.2 (8.6-10.5) MG/DL [facility] Phosphorus, Serum 3.6 (2.5-4.5) MG/DL [facility] Est GFR Non 44 ML/MIN/1.7 3 M2 [facility] Comment: Creatinine based estimated glomerular filtration rate (eGFR) is calculated using the Chronic Kidney Disease Epidemiology Collaboration (CKD-EPI). The CKD-EPI creatinine equation has not been validated in children (<18 years), women or in some racial or ethnic subgroups other than Caucasians and Americans. EST GFR 50 ML/MIN/1.7 3 M2 [facility] Comment: Creatinine based estimated glomerular filtration rate (eGFR) is calculated using the Chronic Kidney Disease Epidemiology Collaboration (CKD-EPI). The CKD-EPI creatinine equation has not been validated in children (<18 years), women or in some racial or ethnic subgroups other than Caucasians and Americans. Testing performed or reported by [facility], a Service of [address] [address] Carol Hagan MD, Guide Escort Blood (Blood, Venous) 12/05/2020 2:17 PM EDT 12/05/2020 2:20 PM EDT Bladimir Kurtz MD LAB BLOOD ORDERABLES Final Re sult Performing Organization Address [facility] Co de Phone Number [facility] * (ABNORMAL) PTH, Intact (12/05/2020 2:17 PM EDT) PTH, Intact 93(H) (15-65) PG/ML [facility] Comment: Testing performed or reported by [facility], a Service of [facility], [address] [place] [id number] Carol Hagan MD, Guide Escort Blood (Blood, Venous) 12/05/2020 2:17 PM EDT 12/05/2020 2:20 PM EDT Bladimir Kurtz MD LAB BLOOD ORDERABLES Final Re sult Performing Organization Address City/[facility] Co de Phone Number [facility] documented in this encounter Visit Diagnoses Diagnosis Stage 3a chronic kidney disease (HCC) documented in this encounter Care Teams Event Sales Assistant Relationship Specialty Start Date End Date Erika Ventura MD [address] [place] [address] PCP - General Internal Medicine 07/18/20 documented as of this encounter
--- OUTSIDE RECORDS SUMMARY | 2024-07-15 18:00 | XMS_ITS | Clinical Summary ---
Author Organization [facility] Address [address] [place] [address] Phone Care Team Providers Care Rivet Heater Name Role Phone Faraz Witt Primary Care Provider [facility] Unavailable [phone] Reason for Visit and Chief Complaint Procedure Plan of Treatment Pending Tests Order Diagnosis Results Due Ordering P earlene Follow Up - Appointment 2 Weeks Unsp fra cture of upper end of left humerus, init for clos fx 10/03/23 Abram Clemons MD Last Documented On 9:26AM ; [facility] Assessments Includes: Assessments from this encounter No Assessments Recorded Medical Equipment - Implanted Devices Includes: Current Devices No Medical Equipment Recorded Medications Includes: Medications discussed during this encounter and other current Medications Current Medications (continue as prescribed) Endocet 2.5-325 MG Oral Tablet 10/03/2023 Provider: Diagnosis: Last Documented On 9:07AM By Abdirahman Diez ; [facility] Medications Administered Includes: Administered Medications from this encounter No Administered Medications Recorded Vital Signs Includes: Vital Signs from this encounter Vital Name 10/03/2023 09:06A Blood Pressure Sitting (mmHg) 154/80 Pulse Rate-Sitting (bpm) 75 Temp-Temporal 96.9 Height (in) 65 Weight (lb) 140 Body Mass Index 23.3 Body Surface Area 1.7 Oxygen Saturation (%) 98 Last Documented: On 10/03/2023 9:07AM ; [facility] Results Includes: Results discussed during this encounter [...] Shoulder, complete, min of 2 views (Left) [id number] Unsp fracture of upper end of left humerus, init for clos fx Abram Clemons MD [facility] 10/03/2023 Last Documented On 4 2:18PM ; [facility] Ankle Fracture [id number] Unsp fracture of upper end of left humerus, init for clos fx Abram Clemons MD [facility] 10/03/2023 Last Documented On 4 2:18PM ; [facility] Medical History Includes: Medical History addressed [...] Check-Out Time Diagnosis Procedure Abram Clemons MD [facility] 4 8:40AM 9:29AM Insurance Includes: Active Insurance Policies Plan Name Member ID Group # Subscriber Relationship Effect becky Dates 1 - [facility] [id number] Julee Simental Self Clinical Notes Includes: Clinical Notes from this encounter * Progress note Date Encounter Last Documented by 10/03/2023 Procedure Last documented on 10/03/2023; 9:26 AM, Abram Clemons MD; [facility] Current Medication - Endocet 2.5-325 MG Oral [...] presents with her daughter. 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 She has no complaints today other than [...]
--- OUTSIDE RECORDS SUMMARY | 2024-07-15 18:00 | XMS_ITS | Encounter Summary ---
[facility] Organization [facility] Address [address] [place] [address] Care Team Providers Care Senior Accounts Payable Clerk Name Role Treasury AssistantDarin De Souza MD Primary Care Provider [phone] Reason for Visit * Therapy (Routine) - Authorized Specialty Diagnoses / Procedures Referred By Contlarissa t Referred To Contact Physical Therapy Diagnoses Closed fracture of proximal end of left humerus, unspecified fracture morphology, initial encounter Rocio Celeste PA [address] [place] [address] [facility] Physical Therapy [address] [address] Referral ID Status Reason Start Date Expiration Date Visits Requested Visits Authorized [id number] Authorized Specialty Services Required 05/28/2024 07/24/2024 9 9 Encounter Details Date Type Department Care Team (Late Contact Info) Description 07/15/2024 4:30 PM EST Treatment [facility] [address] [address] Matty Puentes, PT Closed fracture of proximal [...] Info) Description 07/20/2024 4:30 PM EST Treatment [facility] [address] [address] Jarrell Pope, PLANISHING HAMMER OPERATOR 07/22/2024 4:30 PM EST Treatment [facility] [address] [phone] Jarrell Pope, PLANISHING HAMMER OPERATOR 07/30/2024 4:30 PM EST Treatment [facility] [address] [phone] Indiana Wilkinson, RASTA documented as of this [...] Primary documented in this encounter Care Teams Senior Accounts Payable Clerk Relationship Specialty Start Date End Date Darin De Souza MD [address] [place] [address] PCP - General Pediatrics 04/30/24 documented as of this encounter
--- OUTSIDE RECORDS SUMMARY | 2024-07-15 18:00 | XMS_ITS | Encounter Summary ---
[facility] Organization [facility] Address [address] [place] [address] Care Team Providers Care Unit Trust Manager Name Role Operator And Truck DriverDarin De Souza MD Primary Care Provider [phone] Reason for Visit * Therapy (Routine) - Authorized Specialty Diagnoses / Procedures Referred By Iker t Referred To Contact Physical Therapy Diagnoses Closed fracture of proximal end of left humerus, unspecified fracture morphology, initial encounter Rocio Celeste PA [address] [place] [address] [facility] Physical Therapy [address] [address] Referral ID Status Reason Start Date Expiration Date Visits Requested Visits Authorized [id number] Authorized Specialty Services Required 05/28/2024 07/24/2024 9 9 Encounter Details Date Type Department Care Team (Late st Contact Info) Description 06/25/2024 4:00 PM EST Treatment [facility] [address] [address] Matty Puentes, PT Closed fracture [...] as of this encounter Progress Notes * Matty Puentes, PT - 06/25/2024 4:00 PM EST [facility] - Outpatient PHYSICAL THERAPY DAILY TREATMENT NOTE - OP Date: 06/25/2024 Visit Number: 7 Patient Name: Julee Simental : 1950 Age: 74 y.o. Gender: female Diagnosis: ICD-10-CM ICD-9-CM 1. Closed fracture of proximal end of left humerus, unspecified fracture morphology, initial encounter S42.202A 812.00 Date of Onset/Surgery: 03/11/2024 Referring Provider: Rocio Celeste PA Insurance: Payor: [facility] MED[facility]ARE / Plan: [facility] / Product Type: *No Product type* / Patient Identified by: Matty Puentes PT Language: Greek Medications: No current outpatient medications on file prior to visit. No current facility-administered medications on file prior to visit. Allergies: has no allergies on file. Precautions: Fall risk: Yes Patient/Caregiver Goals: SUBJECTIVE Subjective Report: pt reports continued B shoulder pain with limited active motion Chart Reviewed: Yes Pain B shoulder 5/10 OBJECTIVE TREATMENT INTERVENTION: Modalities: None performed Procedures: PROM shoulder flexion, abd, ER each x10 x3 sets LUE Passive left bicep stretch with 30 sec hold x3 BUE chest press with martha x10 x3 sets in supine [place] t-band B shoullder ext in supine x10 x3 sets ASSESSMENT/Response to Treatment Good Pt with improving active AROM of BUE after above therex Patient Education: Education provided: Yes Education Provided To: Patient utilizing Explanation mode(s) of education Response to Education: Verbal Understanding PLAN POC Development/Review: No Change in the Plan of Care; Participants: Patient Total Treatment Time: 25 Modalities: Therapeutic procedures: Documentation completed by Matty Puentes PT documented in this encounter Plan of Treatment Upcoming Encounters Date Type Department Care Team (Late st Contact Info) Description 07/20/2024 4:30 PM EST Treatment [facility] [address] [phone] Jarrell Pope PTA 07/22/2024 4:30 PM EST Treatment [facility] [address] [phone] Jarrell Pope, ARUNA 07/30/2024 4:30 PM EST Treatment [address] [phone] Indiana Wilkinson, PT documented as of this [...] Primary documented in this encounter Care Teams Unit Trust Manager Relationship Specialty Start Date End Date Darin De Souza MD [address] [place] [address] PCP - General Pediatrics 04/30/24 documented as of this encounter
== END 2024-07-15 16:29 | disposition home or self-care (01) ==
PROVIDERS: PCP Internal Medicine; Visit Provider Nurse Practitioner Family
DX: G20.A1 Parkinson's disease without dyskinesia, without mention of fluctuations (principal); R29.898 Other symptoms and signs involving the musculoskeletal system; R26.9 Unspecified abnormalities of gait and mobility; K59.00 Constipation, unspecified
CPT/HCPCS: 99214; G2211

== ENCOUNTER → 2024-07-15 15:41 | Outpatient (BNVA) | payer OTHER, SELFPAY | PROVIDERS: PCP Internal Medicine; Visit Provider Nurse Practitioner Family | DX: G20.A1 Parkinson's disease without dyskinesia, without mention of fluctuations (principal); R29.898 Other symptoms and signs involving the musculoskeletal system; R26.9 Unspecified abnormalities of gait and mobility; K59.00 Constipation, unspecified | CPT/HCPCS: 99212 ==

== ENCOUNTER 2024-11-05 11:09 | Outpatient (AMB) | payer OTHER, SELFPAY ==
[2024-11-05 11:15] VITALS: BP 150/80; PULSE 70; O2SAT 99; BMI 21.5
--- NOTE | 2024-11-05 11:15 | A.OFFVIS_ITS ---
Vital Signs 11/05/24 11:15 Height 5 ft 6 in Weight 133 lb BMI 21.5 BP 150/80 H Blood Pressure Location Lt brachial Position Sitting Pulse 70 Pulse Source Pulse Oximeter Pulse Oximetry (%) 99 Oxygen Delivery Method Room Air Intake Visit Reasons: Follow up Alum Operator Required: No Allergies aspirin Allergy (Mild, Verified 07/15/24 15:51) unknown diclofenac Allergy (Mild, Verified 07/15/24 15:51) unknown ketorolac Allergy (Mild, Verified 11/05/24 11:18) Hives Medication List - Last Reconciled 11/05/24 by BK Isaac acetaminophen ER (Mapap Arthritis Pain) 0 mg PO amantadine HCl 100 mg PO BID 30 days apixaban (Eliquis) 5 mg PO BID atorvastatin 40 mg PO DAILY bisacodyl 0 mg PO BEDTIME cane Qad cane carbidopa-levodopa 61.25-245 mg ER (Rytary) 2 caps in am and 1 cap 5 x's per day orally .; divide evenly over waking hours 30 days carvedilol 12.5 mg PO BID clopidogrel 75 mg PO DAILY dronedarone (Multaq) 400 mg PO BID ferrous sulfate (FeroSul) 325 mg PO TID furosemide 20 mg PO BID hydralazine 25 mg PO BID polyethylene glycol 3350 (Miralax) 17 grams PO DAILY 30 days sertraline 25 mg PO DAILY 30 days tramadol 50 mg PO BEDTIME HPI Comments Details: 74-yr-old female presents for f/u visit for Parkinson's disease, accompanied by her dtr. Pt had a [facility] eval yesterday d/t increased right knee pain and swelling. The ER d/c'd her w/ prn Tramadol 50mg and an ade wrap. She has had vascular consult- work-up revelaed venous insufficiency- and pt is scheduled for BLE saphenous vein procedures in November. Dr Matty [facility] at [facility]. Patient is wondering about darkening of her skin in bilateral hands and feet. She denies distal swelling, numbness tingling. Occasionally may have some discomfort in her feet. She has talked with her PCP about this, and this was thought to be age-related. Recent lab work was unremarkable Pt's current PD medication regimen: Rytary 61.25-245 mg cap- 1 cap 6 times a day or 2 caps 3 times a day. Amantadine 100mg bid ADL's: Needing help Swallowing: denies issues at this time Drooling: some Orthostatic lightheadedness: denies Constipation: Patient has been having increased constipation, using bowel regimen w/ effect. Taking fluids, fruits/vegetables well. Urinary symptoms: denies- tends to void small amounts. Tremor: tremor is better Dyskinesia: denies Stiffness: as above Gait changes: Having more dififculty walking d/t right knee pain/swelling Freezing: at times- ? d/t pain, as is better w/ the tramadol Falls: Denies Mood: Mood is better, but she may be sad at times. Hallucinations: at times- vivid dreams, but not bothersome Memory: feels it is ok, but may have word finding difficulty. Sleep: sleeping about 7-8 hrs a night w/ melatonin, may talk in her sleep Exercise: trying to do her exercises PFSH Medical History Parkinson's disease Stroke Heart disease Arthritis CKD (chronic kidney disease) HLD (hyperlipidemia) Social History Alcohol intake: never Patient Tobacco Use Status: Never used Tobacco Physical Exam Vital Signs: Last Vital Signs Pulse 70 11/05/24 11:15 BP 150/80 H 11/05/24 11:15 Pulse Ox 99 11/05/24 11:15 Oxygen Delivery Method Room Air 11/05/24 11:15 BMI result Body Mass Index 21.5 Const General: cooperative and no acute distress Resp Effort & Inspection: normal respiratory effort and able to speak in complete sentences Neuro Other: A&O, responding appropriately Pleasant affect Mild decreased expression in blink.? Soft speech No visible drooling BUE R > L rigidity No dyskinesias. No significant RUE rest and BUE postural tremor.? Left hand rest tremor- induced by foot taps Fine finger movements- BUE, right more so than left, bradykineisia Foot taps mild BLE, more so on left, bradykinesia- Needs asisst to stand today, unable to step w/o walker, short steps w/ steady with walker. Right knee tender, swelling, valgus- ade wrap reapplied- steady with walker. Assessment & Plan Assessment & Plan (1) Parkinson's disease without dyskinesia: Code(s): G20.A1 - Parkinson's disease without dyskinesia, without mention of fluctuations Category: Medical (2) Rigidity: Code(s): R29.898 - Other symptoms and signs involving the musculoskeletal system Category: Medical (3) Gait difficulty: Code(s): R26.9 - Unspecified abnormalities of gait and mobility Category: Medical (4) Constipation: Code(s): K59.00 - Constipation, unspecified Category: Medical Plan Continue Rytary 61.25mg-245mg- 2 caps in a.m. and then 1 cap p.o. 4 times a day. Continue amantadine 100 mg b.i.d. Continue sertraline 25 mg daily. Continue melatonin 10-20mg q.h.s. prn Continue tramadol 50mg q4 hrs prn- for knee pain. Continue MiraLax 17 g p.o. daily- taken with fruit-for constipation Continue lactulose, bisacodyl, enema p.r.n constipation Follow-up with orthopedics Follow-up w/ vascular as scheduled= Dr Matty Palomo at [facility] fax [phone] Continue to walk with walker. Follow-up in 6 months or sooner prn. Medications: New blood pressure monitor (Blood Pressure Kit) check BP daily and prn 1 ea 0RF G20.A1 - Parkinson's disease without dyskinesia, without mention of fluctuations, I10 - Essential (primary) hypertension Changed From amantadine HCl 100 mg PO BID 180 caps 1RF 90 days To amantadine HCl 100 mg PO BID 30 days 60 caps 6RF Refilled sertraline 25 mg PO DAILY 30 days 30 tabs 6RF carbidopa-levodopa 61.25-245 mg ER (Rytary) 2 caps in am and 1 cap 5 x's per day orally .; divide evenly over waking hours 30 days 240 caps 6RF Coding Level of Care Code Est Pt Level 4 (70426) Complex EM visit Add On G2211 Diagnoses Parkinson's disease without dyskinesia G20.A1 Rigidity R29.898 Gait difficulty R26.9 Constipation K59.00
--- OUTSIDE RECORDS SUMMARY | 2024-11-05 12:23 | XMS_ITS | Encounter Summary ---
Author Organization [facility] Address [address] [facility] [address] [place] [address] Phone Care Team Providers Care Wind Turbine Mechanical Engineer Name Role Phone Erika Ventura MD Primary Care Provider [phone] Encounter Details Date Type Department Care Team ([facility] Contact Info) Description 12/09/2020 Orders Only [facility] [address] [place] [address] Bladimir Kurtz MD [address] [address] Stage 3a chronic kidney disease [...] Office Visit [facility] [address] [phone] Bladimir Kurtz MD [address] [address] documented as of this encounter [...] 7:45 AM EDT) Protein/Creatine Ratio 0.13 (0-0.2) [facility] Protein, Urine 5 MG/DL [facility] Comment: The urine microalbumin test is designed to monitor renal function. When screening for Bence Martínez proteinuria, urine electrophoresis is recommended. Creatinine, Urine 35.6 MG/DL [facility] Comment: Testing performed or reported by [facility], a Service of [facility], [address] [place] [phone] Carol Hagan MD, Pilot Supervisor Urine (Urine, Clean Catch) 12/06/2020 7:45 AM EDT 12/06/2020 6:42 PM EDT Bladimir Kurtz MD LAB URINE ORDERABLES Final Re sult Performing Organization Address [facility] de Phone Number [facility] * Urine Culture (12/06/2020 7:45 AM EDT) Specimen Description See Comment See Comment See Comment See Comment [facility] Comment: CLEAN CATCH (URINE) NONE Mixed bacterial amrit, indicative of urogenital contamination. FINAL 12/08/2020 Testing performed or reported by [facility], a Service of [facility], [address] [place] [address] Cortez Montoya MD, Pilot Supervisor Urine (Urine, Clean Catch) 12/06/2020 7:45 AM EDT 12/06/2020 6:42 PM EDT Bladimir Kurtz MD LAB URINE ORDERABLES Final Re sult Performing Organization Address [facility] de Phone Number [facility] * Urine Albumin / Creatinine Ratio (12/06/2020 7:45 AM EDT) Urine Microalbumin <12.0 (<20) MG/L [facility] Comment: The urine microalbumin test is designed to monitor renal function. When screening for Bence Martínez proteinuria, urine electrophoresis is recommended. Microalbumin/Creati nine Ratio Unable to calculate (0-20) MG/GM [facility] Microalb/Creat Ratio 35.6 MG/DL [facility] Comment: Testing performed or reported by [facility], a Service of [facility], [address] [place] [address] Carol Hagan MD, Pilot Supervisor Urine (Urine, Clean Catch) 12/06/2020 7:45 AM EDT 12/06/2020 6:42 PM EDT Bladimir Kurtz MD LAB URINE ORDERABLES Final Re sult Performing Organization Address [facility] de Phone Number [facility] * Urinalysis with microscopic (12/06/2020 7:45 AM EDT) Pathologist [facility] Appearance COLORLESS [facility] Comment:CLEAR Specific [place] 1.008 (1.002-1. 030) [facility] pH Urine 7.0 (5.0-8.0) [facility] Albumin, Urine NEGATIVE (NEG) [facility] Glucose, Ur NEGATIVE (NEG) [facility] Ketones, Urine NEGATIVE (NEG) [facility] Bilirubin Urine NEGATIVE (NEG) [facility] Hemoglobin Presence in Urine NEGATIVE (NEG) [facility] Nitrite, Urine NEGATIVE (NEG) [facility] Leukocyte Esterase Urine NEGATIVE (NEG) [facility] Urobilinogen Urine NORMAL (NORM) MG/DL [facility] WBC, Urine 1 (0-5) /HPF [facility] RBC, Urine 1 (0-3) /HPF [facility] Squamous Epithelial, Urine <1 (0-8) /HPF [facility] Comment: Testing performed or reported by [facility], a Service of [address] [address] Carol Hagan MD, Pilot Supervisor Urine (Urine, Clean Catch) 12/06/2020 7:45 AM EDT 12/06/2020 6:42 PM EDT Bladimir Kurtz MD LAB URINE ORDERABLES Final Re sult Performing Organization Address [facility] de Phone Number [facility] * Albumin (12/05/2020 2:17 PM EDT) [facility] Albumin 4.0 (3.4-4.8) GM/DL [facility] Comment: Testing performed or reported by [facility], a Service of [facility], [address] [place] [address] Carol Hagan MD, Pilot Supervisor Blood (Blood, Venous) 12/05/2020 2:17 PM EDT 12/05/2020 2:20 PM EDT Bladimir Kurtz MD LAB BLOOD ORDERABLES Final Re sult Performing Organization Address [facility] de Phone Number [facility] * Magnesium (12/05/2020 2:17 PM EDT) [facility] Magnesium 1.9 (1.6-2.3) mg/dL [facility] Comment: Testing performed or reported by [facility], a Service of [facility], [address] [place] [address] Carol Hagan MD, Pilot Supervisor Blood (Blood, Venous) 12/05/2020 2:17 PM EDT 12/05/2020 2:20 PM EDT Bladimir Kurtz MD LAB BLOOD ORDERABLES Final Re sult Performing Organization Address [facility] Co de Phone Number [facility] * (ABNORMAL) CBC (12/05/2020 2:17 PM EDT) Pathologist [facility] White Blood Cells 3.9(L) (4.0-11.0) K/MM3 [facility] RBC 3.74(L) (4.20-5.40 ) M/MM3 [facility] Hgb 11.5(L) (11.7-15.5 ) GM/DL [facility] Hematocrit 36.7 (35.7-45.8 ) % [facility] MCV 98.1 (80.0-100. 0) FL [facility] MCH 30.7 (27.0-34.0 ) PG [facility] MCHC 31.3(L) (33.0-37.0 ) g/dL [facility] Platelets 169 (150-460) K/MM3 [facility] RDW-SD 45.9 (<47.0) FL [facility] MPV 11.0 (9.4-12.4) FL [facility] nRBC Count 0.0 #/100 WBC'S [facility] NRBC Absolute 0.0 K/MM3 [facility] Comment: Testing performed or reported by [facility], a Service of [facility], [address] [place] [address] Carol Hagan MD, Pilot Supervisor Blood (Blood, Venous) 12/05/2020 2:17 PM EDT 12/05/2020 2:20 PM EDT Bladimir Kurtz MD LAB BLOOD ORDERABLES Final Re sult Performing Organization Address City/[facility]/ZIP Co de Phone Number [facility] * Vitamin D 25 Hydroxy (12/05/2020 2:17 PM EDT) Vitamin D, 25-Hydroxy 28.4 (20-50) NG/ML [facility] Comment: Testing performed or reported by [facility], a Service of [facility], [address] [place] [address] Carol Hagan MD, Pilot Supervisor Blood (Blood, Venous) 12/05/2020 2:17 PM EDT 12/05/2020 2:20 PM EDT us Bladimir Kurtz MD LAB BLOOD ORDERABLES Final Re sult [facility] * (ABNORMAL) Renal Function Panel (12/05/2020 2:17 PM EDT) Glucose 128(H) (70-99) MG/DL [facility] BUN 13 (8-23) MG/DL [facility] Creatinine 1.3(H) (0.5-1.0) MG/DL [facility] Sodium 137 (133-145) MMOL/L [facility] Potassium 4.8 (3.6-5.2) MMOL/L [facility] Chloride 103 (98-107) MMOL/L [facility] Bicarbonate (CO2) 25 (22-29) MMOL/L [facility] Anion Gap 9 (4-17) [facility] Albumin 4.0 (3.4-4.8) GM/DL [facility] Calcium 9.2 (8.6-10.5) MG/DL [facility] Phosphorus, Serum 3.6 (2.5-4.5) MG/DL [facility] Est GFR Non 44 ML/MIN/1.7 3 M2 [facility] Comment: Creatinine based estimated glomerular filtration rate (eGFR) is calculated using the Chronic Kidney Disease Epidemiology Collaboration (CKD-EPI). The CKD-EPI creatinine equation has not been validated in children (<18 years), women or in some racial or ethnic subgroups other than Caucasians and Americans. EST GFR 50 ML/MIN/1.7 3 M2 [facility] Comment: Creatinine based estimated glomerular filtration rate (eGFR) is calculated using the Chronic Kidney Disease Epidemiology Collaboration (CKD-EPI). The CKD-EPI creatinine equation has not been validated in children (<18 years), women or in some racial or ethnic subgroups other than Caucasians and Americans. Testing performed or reported by [facility], a Service of [address] [address] Carol Hagan MD, Pilot Supervisor Blood (Blood, Venous) 12/05/2020 2:17 PM EDT 12/05/2020 2:20 PM EDT Bladimir Kurtz MD LAB BLOOD ORDERABLES Final Re sult Performing Organization Address [facility] Co de Phone Number [facility] * (ABNORMAL) PTH, Intact (12/05/2020 2:17 PM EDT) PTH, Intact 93(H) (15-65) PG/ML [facility] Comment: Testing performed or reported by [facility], a Service of [facility], [address] [place] [address] Carol Hagan MD, Pilot Supervisor Blood (Blood, Venous) 12/05/2020 2:17 PM EDT 12/05/2020 2:20 PM EDT Bladimir Kurtz MD LAB BLOOD ORDERABLES Final Re sult Performing Organization Address City/[facility] Co de Phone Number [facility] documented in this encounter Visit Diagnoses Diagnosis Stage 3a chronic kidney disease (HCC) documented in this encounter Care Teams Wind Turbine Mechanical Engineer Relationship Specialty Start Date End Date Erika Ventura MD [address] [place] [address] PCP - General Internal Medicine 07/18/20 documented as of this encounter
--- OUTSIDE RECORDS SUMMARY | 2024-11-05 12:23 | XMS_ITS | Encounter Summary ---
Author Organization [employer] [facility] [address] Care Team Providers Care Slate Picker Name Role Epic Application CoordinatorDarin De Souza MD Primary Care Provider [phone] Reason for Visit * Reason Comments Leg Swelling Right leg x2 days, h ad ultrasound yesterday neg for dvt Encounter Details Date Type Department Care Team (Late st Contact Info) Description 11/04/2024 11:28 AM EDT - 11/04/2024 12:[address] [facility] [address] [place] [phone] Chronic pain of right knee (Primary Dx) Discharge Disposition: Home or Self Care Social History Tobacco Use Types Packs/Day Years Used Date Smoking Tobacco: Never Assessed Comments No Sex and Gender Information Value Date Recorded Sex Assigned at Not on file Legal Sex Female 10:22 AM EST Gender Identity Not on file Sexual Orientation Not on file documented as of this encounter Last Filed Vital Signs Vital Sign Reading Time Taken Comments Blood Pressure 120/48 11/04/2024 10:09 AM EDT Pulse 68 11/04/2024 10:09 AM EDT Temperature 36.8 ??C (98.2 ??F) 11/04/2024 10:16 AM E DT Respiratory Rate 18 11/04/2024 10:09 AM EDT Oxygen Saturation 100% 11/04/2024 10:09 AM EDT Inhaled Oxygen Concentration - - Weight 62.1 kg (137 lb) 11/04/2024 10:09 AM EDT Height 162.6 cm (5' 4 ) 11/04/2024 10:09 AM EDT Body Mass Index 23.52 11/04/2024 10:09 AM EDT documented in this encounter Discharge Instructions * Attachments The following attachments cannot be sent through Care Everywhere. * Knee Pain or Injury (Khmer) documented in this encounter Medications at Time of Discharge traMADoL (ULTRAM) 50 mg tabletIndications :Chronic pain of right knee Take 1 tablet (50 mg total) by mouth every 6 (six) hours if needed for severe pain for up to 3 days. Max Daily Amount: 200 mg 12 tablet 11/04/2024 11/07/2024 documented as of this encounter Ordered Prescriptions Prescription Sig Dispense Quantity Refills Last Filled Start Date End Date traMADoL (ULTRAM) 50 mg tabletIndications: Chronic pain of right knee Take 1 tablet (50 mg total) by mouth every 6 (six) hours if needed for severe pain for up to 3 days. Max Daily Amount: 200 mg 12 tablet 11/04/2024 11/07/2024 documented in this encounter Discharge Disposition Disposition Code Departure Means Destination Comment s Home or Self Care documented in this encounter Progress Notes * Chikis Terry RN - 11/04/2024 10:12 AM EDT Patient states she is here for pain medication to relieve the pain . * Chikis Terry RN - 11/04/2024 10:12 AM EDT Patient was at the center for vein congregation yesterday. * Chikis Terry RN - 11/04/2024 10:09 AM EDT Right leg pain and swelling x few weeks. Has negative us yesterday. Saw vascular md yesterday. Md states they need to fix some veins in November. But in order for that procedure to be done we have to see ortho doctor but we can't get in there until end of November Unable to ambulate at home due to pain and swelling * JO Price - 11/04/2024 9:22 AM EDT Emergency Medicine Note Patient Name: Julee Simental Initial Evaluation: 11/04/2024 : 1950 Patient's PCP: Darin De Souza MD Emergency Physician: JO Price History of Present Illness Chief Complaint: Chief Complaint Patient presents with Leg Swelling Right leg x2 days, had ultrasound yesterday neg for dvt HPI: This is a 74-year-old female who comes in today complaining of right knee pain and swelling this been ongoing for quite some time. She also has some vein issues for which she is seeing a vein specialist. She saw the vein specialist yesterday and is scheduled to have a vein procedure in the upcomingweeks however she is also awaiting an orthopedic appointment for her right knee pain which is scheduled for November. This is in [place]. She is taking Tylenol for pain but it is not helping. She cannot take NSAIDs because of an allergy although she does not know what the allergy is. She also has stageIII chronic kidney disease. She comes in today looking for pain control for her right knee pain. Nonew injury. No weakness or paresthesias. Apparently had ultrasounds of her lower extremities yesterday which were negative for DVT. ROS: I have performed a ROS with the pertinent positives and negatives documented in the history ofpresent illness. Previous History No past medical history on file. No past surgical history on file. No family history on file. is allergic to aspirin, diclofenac, and ketorolac. No current facility-administered medications on file prior to encounter. No current outpatient medications on file prior to encounter. Physical Exam ED Triage Vitals Temp Heart Rate Resp BP 11/04/24 1016 11/04/24 1009 11/04/24 1009 11/04/24 1009 36.8 ??C (98.2 ??F) 68 18 (!) 120/48 SpO2 Temp Source Heart Rate Source Patient Position 11/04/24 1009 11/04/24 1016 -- -- 100 % Oral BP Location FiO2 (%) -- -- General: Well-appearing, well nourished, in no acute distress HEENT: PERRL, EOMI, external ears and nose appear unremarkable, airway is patent Neck: Supple, full range of motion Chest: Clear to auscultation; no evidence of respiratory distress Circulatory: RRR, extremities well perfused Extremities: Normal ROM, No edema. Right knee with mild edema. No specific pain to palpation. Rangeof motion intact with pain past 90 degrees of flexion. No joint laxity. No overlying erythema or increased warmth. Distal pulses are palpable. Skin: Warm and dry Neuro: Alert and oriented, no focal deficits Results Labs Reviewed - No data to display Abnormal Labs Reviewed - No data to display No orders to display I have discussed the incidental/abnormal imaging and/or lab abnormalities with the patient and haveinstructed them the need for further evaluation and workup with their primary care doctor. I have provided the patient with a paper copy of the abnormality. The laboratory results, imaging results and other diagnostic exam results were reviewed in the EMR. Medical Decision Making Medications - No data to display Clinical Impressions as of 11/04/24 1152 Chronic pain of right knee Differential to include right knee osteoarthritis, cellulitis, low clinical suspicion for septic joint, varicose veins, venous insufficiency Patient well-appearing, afebrile, vital signs stable. She has chronic right knee pain for which sheis currently awaiting follow-up with orthopedics. She is seeing Ortho at [place]. Patient's daughter asks if I can call to get her seen sooner at [place]. I told her I could not do this but I could refer her to Ortho here at [facility]. Apparently she is come here for her question humerus fracture as ofrecently. She was given tramadol for pain. Referral to Ortho. Discharged in stable condition. Procedures Procedures Diagnosis 1. Chronic pain of right knee traMADoL (ULTRAM) 50 mg tablet Disposition Discharge ED Prescriptions Medication Sig Dispense Start Date End Date Auth. Provider traMADoL (ULTRAM) 50 mg tablet Take 1 tablet (50 mg total) by mouth every 6 (six) hours if needed for severe pain for up to 3 days. Max Daily Amount: 200 mg 12 tablet 11/04/2024 11/07/2024 JO Price Physician Attestation JO Price 11/04/24 1133 JO Price 11/04/24 1150 JO Price 11/04/24 1152 Cosigned by Ryan Mcdonald MD at 11/04/2024 2:39 PM EDT documented in this encounter Plan of Treatment Not on file documented as of this encounter Visit Diagnoses Diagnosis Chronic pain of right knee- Primary documented in this encounter Care Teams Slate Picker Relationship Specialty Start Date End Date Darin De Souza MD [address] [place] [id number] PCP - General Internal Medicine 08/13/24 documented as of this encounter
--- OUTSIDE RECORDS SUMMARY | 2024-11-05 12:23 | XMS_ITS | Clinical Summary ---
Author Organization [facility] Address [address] [address] Phone Care Team Providers Care Supervisor Special Effects Name Role Phone Erika Ventura MD Primary Care Provider [phone] Allergies Active Allergy Reactions Criticality Noted Date [...] (primary) hypertension 08/16/2020 Chronic kidney disease 08/16/2020 Immunizations Immunization Administration Dates Next Due Influenza, Unspecified 04/18/2021,2019,08/27/2019,06/05/2018,02/0 11/2012,07/06/2011 Pneumococcal Polysaccharide 04/18/2020 Tdap 09/01/2021 Family History [...] Office Visit [facility]. [address] [phone] Bladimir Kurtz MD [address] [phone] Health Maintenance Due Date Last Done Comments Breast Cancer Screening 1950 Colorectal Cancer Screening: Annual FOBT 1999 Colorectal Cancer Screening: Colonoscopy 1999 Colorectal Cancer Screening: Sigmoidoscopy 1999 Pneumococcal Vaccine: 50+ Years (2 of 2 - PCV) 04/18/2021 04/18/2020 Influenza Vaccine (Season Ended) 2025 04/18/2021, 05/16/2020, 08/27/2019, Additional history exists Pneumococcal Vaccine: Peds (0 to 5 Years) and At-Risk Patients (6 to 49 Years) Discontinued 04/18/2020 Hepatitis B Vaccine Aged Out No longe r eligible based on patient's age to complete this topic Insurance [facility] [place] [id number] [facility] ([id number]) [facility] ([id number]) Care Teams Supervisor Special Effects Relationship Specialty Start Date End Date Erika Ventura MD [address], [place] PCP - General Internal Medicine 07/18/20
--- OUTSIDE RECORDS SUMMARY | 2024-11-05 12:24 | XMS_ITS | Clinical Summary ---
Author Organization [facility] Address [address] [place] [address] Phone Care Team Providers Care Cellophane Tester Name Role Quilting SupervisorDarin De Souza MD Primary Care Provider [phone] Allergies Active Allergy Reactions Criticality Noted Date Comments Aspirin Hives 11/04/2024 Diclofenac Hives 11/04/2024 Ketorolac Hives 11/04/2024 Medications traMADoL (ULTRAM) 50 mg tabletIndication s:Chronic pain of right knee Take 1 tablet (50 mg total) by mouth every 6 (six) hours if needed for severe pain for up to 3 days. Max Daily Amount: 200 mg 12 tablet 11/04/2024 Active Active Problems Problem Noted Date Diagnosed Date Parkinson's disease ([facility] V24, [facility] V28) 1 07/07/2023 Encounters Date Type Department Care Team Description 11/04/2024 11:28 AM EDT - 11/04/2024 12:35 PM EDT Emergency [facility] Emergency [address] [place] [address] Chronic pain of right knee (Primary Dx) Discharge Disposition: Home or Self Care 10/07/2024 12:30 PM EDT Treatment [address] [address] Reshma Dorsey, PT Upper extremity weakness (Primary Dx); Closed fracture of proximal end of left humerus, unspecified fracture morphology, initial encounter 09/30/2024 1:30 PM EDT Treatment [address] [place] [address] Zach Robles, IMPRESS ASSOCIATE 09/23/2024 1:30 PM EDT Treatment [address] [address] Reshma Dorsey, PT Upper extremity weakness (Primary Dx) 09/18/2024 1:30 PM EDT Treatment [address] [address] Reshma Dorsey, PT Upper extremity weakness (Primary Dx) 09/16/2024 1:30 PM EDT Treatment [address] [address] Reshma Dorsey, PT Upper extremity weakness (Primary Dx) 09/11/2024 2:30 PM EDT Treatment [address] [address] Steffen Martínez, IMPRESS ASSOCIATE Upper extremity weakness (Primary Dx) 09/09/2024 1:30 PM EDT Treatment [address] [address] Steffen Martínez, IMPRESS ASSOCIATE Upper extremity weakness (Primary Dx) 09/01/2024 2:30 PM EDT Evaluation [address] [address] Reshma Dorsey, PT Upper extremity weakness (Primary Dx) from Last 3 Months Social History Tobacco Use Types Packs/Day Years Used Date Smoking Tobacco: Never Assessed Comments No Sex and Gender Information Value Date Recorded Sex Assigned at Not on file Legal Sex Female 10:22 AM EST Gender Identity Not on file Sexual Orientation Not on file Obstetrics History Last Filed Vital Signs Vital Sign Reading [...] Mass Index 23.52 11/04/2024 10:09 AM EDT Plan of Treatment Health Maintenance Due Date Last Done Comments Breast Cancer Screening 1950 Zoster Vaccines (1 of 2) 01/16/2000 Pneumococcal Vaccine: 50+ Years (2 of 2 - PCV) 04/18/2021 04/18/2020 Cholesterol Screening (Lipid Panel) 01/14/2024 Depression Screening 01/14/2024 Falls Risk Assessment 01/14/2024 Hepatitis C Screening 01/14/2024 Medicare Annual Wellness Visit 01/14/2024 Social Influencers of Health Screening 01/14/2024 COVID-19 Vaccine ( - season) 2024 Hypertension/CHF/CAD Annual BMP Blood Test 04/28/2024 RSV Immunization Adult Patients (1 - 1-dose 75+ series) 2025 Influenza Vaccine (Season Ended) 2025 04/18/2021, 05/16/2020, 08/27/2019, Additional history exists Colorectal Cancer Screening: FIT-DNA (Cologuard) 05/25/2027 05/25/2024, [...] patient's age to complete this topic Meningococcal B Vaccine Aged Out No l onger eligible based on patient's age to complete [...] (healed) traumatic fracture from Last 3 Months or Most Recently Relevant to Health Maintenance Results * BD Bone Density DXA Axial Skeleton (05/27/2024 9:09 AM EST) Anatomical Region Laterality Modality Wrist, Hip, L-spine Bone Densito metry 05/27/2024 9:32 AM EST Impressions 05/27/2024 9:33 AM EST Osteoporosis. ? [id number] -------- FINAL REPORT -------- Dictated By: Margi Szymanski Dictated Date: 05/27/2024 09:32 ET Assigned Physician: Margi Szymanski Reviewed and Electronically Signed By: Margi Szymanski Signed Date: 05/27/2024 09:33 ET Workstation ID: [id number] Transcribed By: Self Edit Transcribed Date: 05/27/2024 09:32 ET Narrative 05/27/2024 9:33 AM EST History: Low estrogen state due to menopause. Personal history of fracture. Comparison: No comparison imaging at this institution. Findings: Bone densitometry is performed utilizing dual energy x-ray absorptiometry (DXA) in the Eloxx unit. The lumbar spine and proximal femora [...] utilizing dual energy x-ray absorptiometry(DXA) in the Eloxx unit. The lumbar spine and proximal femora [...] Osteoporotic 13.8percent Hip 3.7 percent. IMPRESSION: Osteoporosis. [id number] -------- FINAL REPORT -------- Dictated By: Margi Szymanski Dictated Date: 05/27/2024 09:32 ET Assigned Physician: Margi Szymanski Reviewed and Electronically Signed By: Margi Szymanski Signed Date: 05/27/2024 09:33 ET Workstation ID: [id number] Transcribed By: Self Edit Transcribed Date: 05/27/2024 09:32 ET Julissa Leon NP IM DXA PROCEDURES Final Result from Last 3 Months or Most Recently Relevant to Health Maintenance Insurance [facility] MEDICARE Member Subscriber Plan / Payer (Ef fective 2017-Present) Name:Julee Simental Relation to Subscriber:Self Name:Devon Simentalfa Payer ID:[id number] Group ID:[id number] Type:Not on file Address: [facility] [address] [id number] Care Teams Cellophane Tester Relationship Specialty Start Date End Date Darin De Souza MD [address] [place] [address] PCP - General Internal Medicine 08/13/24
== END 2024-11-05 12:06 | disposition home or self-care (01) ==
LOC: HO.HSMS 11:10
PROVIDERS: PCP Internal Medicine; Visit Provider Nurse Practitioner Family
DX: G20.A1 Parkinson's disease without dyskinesia, without mention of fluctuations (principal); R29.898 Other symptoms and signs involving the musculoskeletal system; R26.9 Unspecified abnormalities of gait and mobility; K59.00 Constipation, unspecified
CPT/HCPCS: 99214; G2211

== ENCOUNTER → 2024-11-05 11:09 | Outpatient (BNVA) | payer OTHER, SELFPAY | PROVIDERS: PCP Internal Medicine; Visit Provider Nurse Practitioner Family | DX: G20.A1 Parkinson's disease without dyskinesia, without mention of fluctuations (principal); R29.898 Other symptoms and signs involving the musculoskeletal system; R26.9 Unspecified abnormalities of gait and mobility; K59.00 Constipation, unspecified | CPT/HCPCS: 99212 ==

== ENCOUNTER 2025-04-30 10:53 | Outpatient (REF) | payer OTHER, SELFPAY ==
[2025-04-30 17:53] LABS: MANUAL DIFF FLAG NO
[2025-04-30 18:18] LABS: Alanine Aminotransferase 6 U/L (0-31); Albumin Level 4.4 g/dL (3.5-5.0); Alkaline Phosphatase 86 U/L (39-117); Anion Gap 12 (12-20); Aspartate Amino Transferase 23 U/L (5-31); Blood Urea Nitrogen 18 mg/dL (9-16); Calcium 9.5 mg/dL (8.4-10.2); Carbon Dioxide 25 mmol/L (22-29); Chloride 104 mmol/L (96-108); Estimated Glomerular Filt Rate 52; Magnesium 2.3 mg/dL (1.6-2.6); Potassium 5.0 mmol/L (3.3-5.1); Sodium 136 mmol/L (135-145); Total Protein 7.2 g/dL (6.5-8.0)
[2025-04-30 18:29] LABS: Hematocrit 40.3 % (37.0-47.0); Hemoglobin 12.9 g/dl (12.0-16.0); Imm Gran Abs Auto 0.01 X10*3/uL (0.00-0.03); Imm Gran Pct Auto 0.2 % (0.0-0.4); Lymphocytes Absolute Auto 1.3 X10*3/uL (1.2-4.9); Mean Corpuscular HGB Conc 32.0 g/dl (31.0-35.0); Mean Corpuscular Hemoglobin 31.7 pg (27.0-33.0); Mean Corpuscular Volume 99.0 fL (80.0-98.0); NRBC Abs Auto 0.000 X10*3/uL (0.0-0.012); NRBC Pct Auto 0.0 /100WBC (0.0-0.2); Platelet Count 173 X10*3/uL (160-400); Red Blood Count 4.07 X10*6/uL (4.20-5.50); White Blood Count 4.6 X10*3/uL (4.8-10.8)
[2025-04-30 18:35] LABS: Total Hemoglobin (HGBA1C) 2578.4029 umol/L
[2025-04-30 18:49] LABS: Folate 19.8 ng/mL (> or = 4.0); Vitamin B12 997 pg/mL (200-900)
== END 2025-04-30 10:54 | disposition home or self-care (01) ==
LOC: HO.HKASLDS 10:53
PROVIDERS: PCP Internal Medicine; Visit Provider Nurse Practitioner Family
DX: G20.A1 Parkinson's disease without dyskinesia, without mention of fluctuations (principal); R29.898 Other symptoms and signs involving the musculoskeletal system; R26.9 Unspecified abnormalities of gait and mobility; K59.09 Other constipation; N18.9 Chronic kidney disease, unspecified; R73.03 Prediabetes; M62.838 Other muscle spasm
CPT/HCPCS: 36415; 80053; 82607; 82746; 83036; 83735; 85025; 99212

== ENCOUNTER 2025-04-30 10:53 | Outpatient (AMB) | payer OTHER, SELFPAY ==
--- OUTSIDE RECORDS SUMMARY | 2025-04-01 06:15 | XMS_ITS | Continuity of Care Document ---
Author Organization [facility] Address [address] [place] [address] Phone Support Name Relationship Address Hand Upper And Bottom LacerDarin De Souza MD Caregiver Unknown Unavailable Care Team Providers Care Motorized Squad Captain Name Role Phone Dewey SHIN, RVT, CHING, Matty Unavailable U navailable Allergies, Adverse Reactions, Alerts Substance Reaction Status Criticality aspirin Active No Information diclofenac Active No Information ketorolac Active No Information Medications Medication Instructions Dosage Effective Dates (start - stop) Status Comments acetaminophen 325 mg tablet - Ac tive amantadine HCl 100 mg tablet - Active atorvastatin 40 mg tablet - Acti ve carvedilol 12.5 mg tablet - Acti ve clopidogrel 75 mg tablet - Activ e docusate sodium 100 mg tablet - Active Eliquis 5 mg tablet - Active Fosamax 70 mg tablet - Active hydralazine 25 mg tablet - Activ e Miralax 17 gram oral powder packet - Active Multaq 400 mg tablet - Active pantoprazole 40 mg tablet,delayed release - Active Sinemet 25 mg-100 mg tablet - Ac tive Procedures Procedure Date Office/Outpt E&M Established 10 Mins- CT & [place] Duplex Scan-extrem Veins; Uni/ CT & [place] O Office/Outpt E&M Established 15 Mins- CT & [place] Duplex Scan-extrem Veins; Comp- [place] & [place] Duplex Scan-extrem Veins; Uni/ CT & [place] J PT Did Not Receive Services Duplex Scan-extrem Veins; Uni/ CT & [place] J Varithena, Single Truncal Vein - [place] & [place] Duplex Scan-extrem Veins; Uni/ [place] & [place] J Varithena, Single Truncal Vein - [place] & [place] Offic Cons New/estab Mod 40 Mi- CT & [place] Duplex Scan-extrem Veins; Comp- CT & [place] Advance Directives Directive Yes / No Effective Date File Name Other Directive No 04/01/2025 N/A WARNING:The information contained in this section is historical and is provided for information only and does not constitute a legal document or any assurance that the information is still accurate. Please verify the information with the farah of the legal document before using it for clinical purposes. Encounters Encounter Description Practice Location Reason(s) For Visit Diagnoses Date Provider Providers Copied on Encounter Office/Outpt E&M Established 10 Mins- [place] & [place] [facility], [address] [place] [address] Dr [address] [address], [id number], tel:[phone] CV[place] - [place] Pain in left legVenous insufficiency (chronic) (peripheral)Ess ential (primary) hypertension 5 Dewey SHIN RVT, RPVI Robert. [address] [place] [address], [place], [id number] , [place]. tel:[phone] Referring Provider: Darin De Souza MD, [place], [address]. tel:[phone] [facility], [address] [place] [address] Dr [address] [address], [place], [id number], tel:[phone] CVR - [facility] Chronic venous hypertension (idiopathic) with other complications of left lower extremity 5 Dewey SHIN RVT, RPVI Robert. [address] [place] [address], [place], [id number] , [place]. tel:[phone] Referring Provider: Darin De Souza MD, [address] [place], [address]. tel:[phone] Office/Outpt E&M Established 15 Mins- CT & CRISSY [facility], [address] [place] [address] Dr [address], [id number], [place] tel:[phone] CVR - [place] Localized edemaCramp and spasmRestless legs syndromeEssenti al (primary) hypertension 5 Dewey SHIN RVT, CHING Starr. [address] [facility] [address], [address], [place], [id number] , [place]. [phone] Referring Provider: Darin De Souza MD, [address] [place], [address]. tel:[phone] [facility], [address] [place] [address] [address], [id number], [place] tel:[phone] CV[place] - [place] Chronic venous hypertension (idiopathic) with other complications of bilateral lower extremity 5 Dewey SHIN RVT, CHING Starr. [address] [place] [address], [address], [place], [id number] , [place]. [phone] Referring Provider: Darin De Souza MD, [address] [place], [address]. tel:[phone] [facility], [address] [place] [address] [address], [place], [id number], [place] tel:[phone] [place] Pain in left leg 5 Dewey SHIN RVT, CHING Starr. [address] [place] [address], [address], [place], [id number] , [place]. [phone] Referring Provider: Darin De Souza MD, [address] [place], [address]. tel:[phone] [facility], [address] [place] [address] [address], [place], [id number], [place] tel:[phone] [place] - [place] No Information 5 Dewey SHIN RVT, CHING Starr. [address] [place] [address], [address], [place], [id number] , [place]. tel:[phone] Referring Provider: Darin De Souza MD, [address] [place], [address]. tel:[phone] [place] [facility], [address] [place] [address] [facility] [address], [id number], [place] tel:[phone] [place] Encounter for follow-up examination after completed treatment for conditions other than malignant neoplasmChronic venous hypertension (idiopathic) with other complications of left lower extremity 5 Dewey SHIN RVT, CHING Starr. [address] [place] [address], [address], [place], [id number] , [place]. tel:[phone] Referring Provider: Darin De Souza MD, [address] [place], [address]. tel:[phone] [place] [facility], [address] [place] [address] [facility] [address] [address], [id number], [place] tel:[phone] [place] - [place] Varicose veins of left lower extremity with other complications 5 Dewey SHIN RVT, CHING Starr. [address] [place] [address], [place], [id number] , [place]. tel:[phone] Referring Provider: Darin De Souza MD, [address] [place], [address]. tel:[phone] [place] [facility], [address] [place] [address] [facility] [address], [id number], [place] tel:[phone] [place] Encounter for follow-up examination after completed treatment for conditions other than malignant neoplasmVaricos e veins of right lower extremity with pain 5 Dewey SHIN RVT, CHING Starr. [address] [place] [address], [address], [place], [id number] , [place]. tel:[phone] Referring Provider: Darin De Souza MD, [address] [place], [address]. tel:[phone] [facility], [address] [place] [address] Dr Kim [address], [id number], [place] tel:[phone] [place] - [place] Varicose veins of right lower extremity with other complications 5 Dewey SHIN RVT, CHING Starr. [address] [facility], [address], [place], [id number] , [place]. tel:[phone] Referring Provider: Darin De Souza MD, [address] [place], [address]. tel:[phone] Offic Cons New/estab Mod 40 Mi- CT & [place] [facility], [address] [place] [address] Dr Kim [address], [id number], [place] tel:[phone] [place] Chronic venous hypertension (idiopathic) without complications of bilateral lower extremityRestle ss legs syndromeEssenti al (primary) hypertensionPai n in left legCramp and spasmLocalized edema 5 Dewey SHIN RVT, CHING Starr. [address] [facility], [address], [place], [id number] , [place]. tel:[phone] Referring Provider: Darin De Souza MD, [address] [place], [address]. tel:[phone] [place] [facility], [address] [place] [address] Dr Kim [address], [id number], [place] tel:[phone] [place] - [place] Chronic venous hypertension (idiopathic) with other complications of bilateral lower extremity 5 Dewey SHIN RVT, CHING Starr. [address] [facility], [address], [place], [id number] , [place]. tel:[phone] Referring Provider: Darin De Souza MD, [address] [place], [address]. tel:[phone] Family History Family Member Type Diagnosis Age At Onset No Information Payers Payer name Insurance type Covered libertarian ID Authoriza tion(s) [facility] [id number] Social History Type Description Quantity Date Captured Comments Alcohol Use Details Unknown Caffeine Use Details Unknown Tobacco Use Status Current non-smoker Smoking Status Never Smoker Non-Smoking Tobacco Use Details : No Details Available : No Details Available Sex Female Vital Signs Date / Time: Height Weight BMI Pulse Rate Blood Pressure Temperature Respiratory Rate Body Surface Area Head Circumference Head Circ. Percentile Wt./Sha. Percentile BMI percentile Pulse Ox Inhaled Ox 56.250 kg (124.00 lbs) 22.0 0 kg/m eter (2) 124/84 mm[Hg] Chief Complaint And Reason For Visit No Information Reason For Referral Reason For Referral No Information Plan Of Treatment Date Type Action Status Appointment Julee Simental (6 Month) BOOK ED Appointment Julee Simental (6 Month ) [facility] BLACKMAN History Of Present Illness Encounter Date Complaint History Of Prese nt Illness No Information Functional Status Date Functional Assessmen t No Information Instructions Date Instruction Additional Infor mation Patient education booklet given Related to Pain in left leg Compression stocking usage as conservative measure Related to Pain in left leg Patient education booklet given Related to Localized edema Compression stocking usage as conservative measure Related to Localized edema Patient education booklet given Related to Chronic venous hypertension (idiopathic) without complications of bilateral lower extremity Assessments Type Assessment Date assessment Pain in left leg assessment Venous insufficiency (chronic) ( peripheral) assessment Essential (primary) hypertension Patient Care Teams Name Effective Dates (start - stop) Status Members No Information
[2025-04-30 10:57] VITALS: BP 102/60; O2SAT 98; BMI 20.8
--- NOTE | 2025-04-30 10:57 | A.OFFVIS_ITS ---
Vital Signs 04/30/25 10:57 Height 5 ft 6 in Weight 129 lb BMI 20.8 BP 102/60 Blood Pressure Location Rt brachial Position Sitting Pulse Oximetry (%) 98 Oxygen Delivery Method Room Air Intake Visit Reasons: 6 mnts f/u-Conf Materials Planner Required: No Accompanied by: Self / Same As Patient Allergies aspirin Allergy (Mild, Verified 04/30/25 11:05) unknown diclofenac Allergy (Mild, Verified 04/30/25 11:05) unknown ketorolac Allergy (Mild, Verified 04/30/25 11:05) Hives Medication List - Last Reconciled 04/30/25 by BK Isaac acetaminophen ER (Mapap Arthritis Pain) 0 mg PO amantadine HCl 100 mg PO BID 30 days apixaban (Eliquis) 5 mg PO BID atorvastatin 40 mg PO DAILY bisacodyl 0 mg PO BEDTIME blood pressure monitor (Blood Pressure Kit) check BP daily and prn cane Qad cane carbidopa-levodopa 61.25-245 mg ER (Rytary) Increase Rytary 61.25mg-245mg to- 2 - 1 - 2 - 1 - 2 caps (total of 8 caps per day) orally. 30 days carvedilol 12.5 mg PO BID clopidogrel 75 mg PO DAILY dronedarone (Multaq) 400 mg PO BID ferrous sulfate (FeroSul) 325 mg PO TID furosemide 20 mg PO BID hydralazine 25 mg PO BID polyethylene glycol 3350 (Miralax) 17 grams PO DAILY 30 days sertraline 25 mg PO DAILY 30 days tramadol 50 mg PO BEDTIME HPI Comments Details: 75-yr-old female presents for f/u visit for Parkinson's disease, accompanied by her dtr, Erasmo. Interval h/o: She had an [facility] ortho evaluation for her chronic right knee pain and swelling. They gave her a knee brace, which has helped her to walk better. However, they were not able to offer her any surgical interventions due to her having Parkinson's. She underwent LE saphenous vein procedures in November- by Dr Matty [facility] at [facility]. Pt's current PD medication regimen: Rytary 61.25-245 mg cap- 2 caps at 8:30am, 1 cap 1-2 pm, 1 cap 5 pm, 2 caps at bedtime. Amantadine 100mg bid ADL's: Needing help Swallowing: denies issues at this time Drooling: some Orthostatic lightheadedness: denies Constipation: Patient has been having increased constipation, using bowel regimen w/ effect. Taking fluids, fruits/vegetables well. Urinary symptoms: denies- tends to void small amounts. Tremor: tremor Dyskinesia: denies Stiffness: the right shoudler is stiff. The bilateral 1st toes and soles of foot feel heavy at times. She may have BLE leg spasms. Gait changes: She is walking better when she is wearing a knee brace- given to her by ortho. she is supposed to start PT for her right shoulder. Freezing: at times- unsure Falls: Denies Mood: Mood is better, but she may be sad at times. Hallucinations: at times- vivid dreams, but not bothersome Memory: feels it is ok, but may have word finding difficulty. Sleep: sleeping about 7-8 hrs a night w/ melatonin, may talk in her sleep Exercise: trying to do her exercises [facility] Medical History (Updated 05/13/25 @ 18:39 by BK Isaac) HTN (hypertension) Parkinson's disease Stroke Heart disease Arthritis CKD (chronic kidney disease) HLD (hyperlipidemia) Social History Alcohol intake: never Patient Tobacco Use Status: Never used Tobacco Physical Exam Vital Signs: Last Vital Signs BP 102/60 04/30/25 10:57 Pulse Ox 98 04/30/25 10:57 Oxygen Delivery Method Room Air 04/30/25 10:57 BMI result Body Mass Index 20.8 Const General: cooperative and no acute distress Resp Effort & Inspection: normal respiratory effort and able to speak in complete sentences Neuro Other: A&O, responding appropriately Pleasant affect Mild decreased expression in blink.? Soft speech No visible drooling BUE R > L rigidity No dyskinesias. No significant RUE rest and BUE postural tremor.? Left hand rest tremor- induced by foot taps Fine finger movements- BUE, right more so than left, bradykineisia Foot taps mild BLE, more so on left, bradykinesia- Needs assist to stand today, however gait is much improved compared to last visit. Short steps, steady gait with assistive device, and contact guard. Assessment & Plan Assessment & Plan (1) Parkinson's disease without dyskinesia: Code(s): G20.A1 - Parkinson's disease without dyskinesia, without mention of fluctuations Category: Medical (2) Rigidity: Code(s): R29.898 - Other symptoms and signs involving the musculoskeletal system Category: Medical (3) Gait difficulty: Code(s): R26.9 - Unspecified abnormalities of gait and mobility Category: Medical (4) Constipation: Code(s): K59.00 - Constipation, unspecified Category: Medical Qualifiers: Constipation type: other constipation type Qualified Code(s): K59.09 - Other constipation Plan Continue Rytary 61.25mg-245mg- 2 caps at 8:30am, 1 cap 1-2 pm, 1 cap 5 pm, 2 caps at bedtime Continue amantadine 100 mg b.i.d. Continue sertraline 25 mg daily. Continue melatonin 10-20mg q.h.s. prn Continue MiraLax 17 g p.o. daily- taken with fruit-for constipation Continue lactulose, bisacodyl, enema p.r.n constipation Check labs for common etiologies of muscle spasms PT eval and treat-patient requests for shoulder, before addressing the right knee specifically Continue to engage in regular physical and social activity as tolerated Follow-up with orthopedics as needed, could consider referral to Dr. Tyler at [facility] in the future. Follow-up w/ vascular as scheduled= Dr Matty Palomo at [facility]. Follow-up in 6 months or sooner prn. Orders: Orders Complete Blood Count Auto Diff 04/30/25 M62.838 - Other muscle spasm, R73.03 - Prediabetes, N18.9 - Chronic kidney disease, unspecified Comprehensive [place]. Panel Fast 04/30/25 M62.838 - Other muscle spasm, R73.03 - Prediabetes, N18.9 - Chronic kidney disease, unspecified Hemoglobin A1c 04/30/25 M62.838 - Other muscle spasm, R73.03 - Prediabetes, N18.9 - Chronic kidney disease, unspecified PT Evaluation and Treatment 04/30/25 G20.A1 - Parkinson's disease without dyskinesia, without mention of fluctuations, M25.511 - Pain in right shoulder, R29.898 - Other symptoms and signs involving the musculoskeletal system Vitamin B12 and Folate 04/30/25 M62.838 - Other muscle spasm, R73.03 - Prediabetes, N18.9 - Chronic kidney disease, unspecified Magnesium 04/30/25 M62.838 - Other muscle spasm, R73.03 - Prediabetes, N18.9 - Chronic kidney disease, unspecified Medications: Changed From carbidopa-levodopa 61.25-245 mg ER Increase Rytary 61.25mg-245mg to- 2 - 1 - 2 - 1 - 2 caps (total of 8 caps per day) orally. 30 days 240 caps 6RF To carbidopa-levodopa 61.25-245 mg ER (Rytary) 2 caps PO QID 240 caps 6RF 30 days Coding Level of Care Code Est Pt Level 4 (43057) Diagnoses Parkinson's disease without dyskinesia G20.A1 Rigidity R29.898 Gait difficulty R26.9 Other constipation K59.09 Constipation type: other constipation type
--- OUTSIDE RECORDS SUMMARY | 2025-04-30 13:06 | XMS_ITS | Encounter Summary ---
Author Organization [facility] Address [address] [facility] [address] [place] [address] Phone Care Team Providers Care Hot Saw Operator Name Role Phone Erika Ventura MD Primary Care Provider [phone] Encounter Details Date Type Department Care Team ([facility] [address] Contact Info) Description 12/09/2020 Orders Only [facility] [address] [place] [address] Bladimir Kurtz MD [address] [address] Stage 3a chronic kidney disease [...] Department Care Team (Late Contact Info) Description 05/25/2025 3:45 PM EST Office Visit [facility] [address] [address] Bladimir Kurtz MD [address] [address] documented as of this encounter [...] 7:45 AM EDT) Protein/Creatine Ratio 0.13 (0-0.2) [facility] Protein, Urine 5 MG/DL [facility] Comment: The urine microalbumin test is designed to monitor renal function. When screening for Bence Martínez proteinuria, urine electrophoresis is recommended. Creatinine, Urine 35.6 MG/DL [facility] Comment: Testing performed or reported by [facility], a Service of [facility], [address] [place] [id number] Carol Hagan MD, Jewelry Mold Maker Urine specimen (specimen) Urine specimen obtained by clean catch procedure / Unknown 12/06/2020 7:45 AM EDT 12/06/2020 6:42 PM EDT Bladimir Kurtz MD LAB URINE ORDERABLES Final Re sult Performing Organization Address [facility] de Phone Number [facility] * Urine Culture (12/06/2020 7:45 AM EDT) Specimen Description See Comment See Comment See Comment See Comment [facility] Comment: CLEAN CATCH (URINE) NONE Mixed bacterial amrit, indicative of urogenital contamination. FINAL 12/08/2020 Testing performed or reported by [facility], a Service of [facility], [address] [place] [address] Cortez Montoya MD, Jewelry Mold Maker Urine specimen (specimen) Urine specimen obtained by clean catch procedure / Unknown 12/06/2020 7:45 AM EDT 12/06/2020 6:42 PM EDT Bladimir Kurtz MD LAB URINE ORDERABLES Final Re sult Performing Organization Address [facility] de Phone Number [facility] * Urine Albumin / Creatinine Ratio (12/06/2020 7:45 AM EDT) Urine Microalbumin <12.0 (<20) MG/L [facility] Comment: The urine microalbumin test is designed to monitor renal function. When screening for Bence Martínez proteinuria, urine electrophoresis is recommended. Microalbumin/Creati nine Ratio Unable to calculate (0-20) MG/GM [facility] Microalb/Creat Ratio 35.6 MG/DL [facility] Comment: Testing performed or reported by [facility], a Service of [facility], [address] [place] [address] Carol Hagan MD, Jewelry Mold Maker Urine specimen (specimen) Urine specimen obtained by clean catch procedure / Unknown 12/06/2020 7:45 AM EDT 12/06/2020 6:42 PM EDT Bladimir Kurtz MD LAB URINE ORDERABLES Final Re sult Performing Organization Address [facility] de Phone Number [facility] * Urinalysis with microscopic (12/06/2020 7:45 AM EDT) Appearance COLORLESS [facility] Comment:CLEAR Specific [place] 1.008 (1.002-1. 030) [facility] pH Urine 7.0 (5.0-8.0) [facility] Albumin, Urine NEGATIVE (NEG) [facility] Glucose, Ur NEGATIVE (NEG) [facility] [facility] Ketones, Urine NEGATIVE (NEG) [facility] Bilirubin Urine NEGATIVE (NEG) [facility] Hemoglobin Presence in Urine NEGATIVE (NEG) [facility] [facility] Nitrite, Urine NEGATIVE (NEG) [facility] [facility] Leukocyte Esterase Urine NEGATIVE (NEG) [facility] [facility] Urobilinogen Urine NORMAL (NORM) MG/DL [facility] WBC, Urine 1 (0-5) /HPF [facility] RBC, Urine 1 (0-3) /HPF [facility] Squamous Epithelial, Urine <1 (0-8) /HPF [facility] Comment: Testing performed or reported by [facility], a Service of [facility], [address] [place] [address] Carol Hagan MD, Jewelry Mold Maker Urine specimen (specimen) Urine specimen obtained by clean catch procedure / Unknown 12/06/2020 7:45 AM EDT 12/06/2020 6:42 PM EDT Result [facility] Bladimir Kurtz MD LAB URINE ORDERABLES Final Re sult Performing Organization Address [facility] Phone Number [facility] * Albumin (12/05/2020 2:17 PM EDT) Pathologist [facility] Albumin 4.0 (3.4-4.8) GM/DL [facility] Comment: Testing performed or reported by [facility], a Service of [facility], [address] [place] [id number] Carol Hagan MD, Jewelry Mold Maker Blood specimen (specimen) Venous blood / Unknown 12/05/2020 2:17 PM EDT 12/05/2020 2:20 PM EDT us Bladimir Kurtz MD LAB BLOOD ORDERABLES Final Re sult Performing Organization Address [facility]/ZIP Co de Phone Number [facility] * Magnesium (12/05/2020 2:17 PM EDT) Pathologist [facility] Magnesium 1.9 (1.6-2.3) mg/dL [facility] Comment: Testing performed or reported by [facility], a Service of [facility], [address] [place] [id number] Carol Hagan MD, Jewelry Mold Maker Blood specimen (specimen) Venous blood / Unknown 12/05/2020 2:17 PM EDT 12/05/2020 2:20 PM EDT us Bladimir Kurtz MD LAB BLOOD ORDERABLES Final Re sult [facility] * (ABNORMAL) CBC (12/05/2020 2:17 PM EDT) [facility] White Blood Cells 3.9(L) (4.0-11.0) K/MM3 [facility] RBC 3.74(L) (4.20-5.40 ) M/MM3 [facility] Hgb 11.5(L) (11.7-15.5 ) GM/DL [facility] Hematocrit 36.7 (35.7-45.8 ) % [facility] MCV 98.1 (80.0-100. 0) FL [facility] MCH 30.7 (27.0-34.0 ) PG [facility] MCHC 31.3(L) (33.0-37.0 ) g/dL [facility] Platelets 169 (150-460) K/MM3 [facility] RDW-SD 45.9 (<47.0) FL [facility] MPV 11.0 (9.4-12.4) [place] [facility] nRBC Count 0.0 #/100 WBC'S [facility] NRBC Absolute 0.0 K/MM3 [facility] Comment: Testing performed or reported by [facility], a Service of [facility], [address] [place] [address] Carol Hagan MD, Jewelry Mold Maker Blood specimen (specimen) Venous blood / Unknown 12/05/2020 2:17 PM EDT 12/05/2020 2:20 PM EDT Bladimir Kurtz MD LAB BLOOD ORDERABLES Final Re sult [facility] * Vitamin D 25 Hydroxy (12/05/2020 2:17 PM EDT) Vitamin D, 25-Hydroxy 28.4 (20-50) NG/ML [facility] Comment: Testing performed or reported by [facility], a Service of [facility], [address] [place] [id number] Carol Hagan MD, Jewelry Mold Maker Blood specimen (specimen) Venous blood / Unknown 12/05/2020 2:17 PM EDT 12/05/2020 2:20 PM EDT Bladimir Kurtz MD LAB BLOOD ORDERABLES Final Re sult Performing Organization Address [facility] Co de Phone Number [facility] * (ABNORMAL) Renal Function Panel (12/05/2020 2:17 PM EDT) Glucose 128(H) (70-99) MG/DL [facility] BUN 13 (8-23) MG/DL [facility] Creatinine 1.3(H) (0.5-1.0) MG/DL [facility] Sodium 137 (133-145) MMOL/L [facility] Potassium 4.8 (3.6-5.2) MMOL/L [facility] Chloride 103 (98-107) MMOL/L [facility] Bicarbonate (CO2) 25 (22-29) MMOL/L [facility] Anion Gap 9 (4-17) [facility] Albumin 4.0 (3.4-4.8) GM/DL [facility] Calcium 9.2 (8.6-10.5) MG/DL [facility] Phosphorus, Serum 3.6 (2.5-4.5) MG/DL [facility] Est GFR Non 44 ML/MIN/1.7 3 M2 [facility] Comment: Creatinine based estimated glomerular filtration rate (eGFR) is calculated using the Chronic Kidney Disease Epidemiology Collaboration (CKD-EPI). The CKD-EPI creatinine equation has not been validated in children (<18 years), women or in some racial or ethnic subgroups other than Caucasians and Americans. EST GFR 50 ML/MIN/1.7 3 M2 [facility] Comment: Creatinine based estimated glomerular filtration rate (eGFR) is calculated using the Chronic Kidney Disease Epidemiology Collaboration (CKD-EPI). The CKD-EPI creatinine equation has not been validated in children (<18 years), women or in some racial or ethnic subgroups other than Caucasians and Americans. Testing performed or reported by [facility], a Service of [facility], [address] [place] [phone] Carol Hagan MD, Jewelry Mold Maker Blood specimen (specimen) Venous blood / Unknown 12/05/2020 2:17 PM EDT 12/05/2020 2:20 PM EDT Bladimir Kurtz MD LAB BLOOD ORDERABLES Final Re sult Performing Organization Address [facility] Co de Phone Number [facility] * (ABNORMAL) PTH, Intact (12/05/2020 2:17 PM EDT) PTH, Intact 93(H) (15-65) PG/ML [facility] Comment: Testing performed or reported by [facility], a Service of [facility], [address] [place] [address] aCrol Hagan MD, Jewelry Mold Maker Blood specimen (specimen) Venous blood / Unknown 12/05/2020 2:17 PM EDT 12/05/2020 2:20 PM EDT Bladimir Kurtz MD LAB BLOOD ORDERABLES Final Re sult Performing Organization Address City/[facility]/ZIP Co de Phone Number [facility] documented in this encounter Visit Diagnoses Diagnosis Stage 3a chronic kidney disease (HCC) documented in this encounter Care Teams Hot Saw Operator Relationship Specialty Start Date End Date Erika Ventura MD [address] [place] [address] PCP - General Internal Medicine 07/18/20 documented as of this encounter
--- OUTSIDE RECORDS SUMMARY | 2025-04-30 13:06 | XMS_ITS | Clinical Summary ---
Author Organization 175 [facility] Address [address] [place] [address] Phone Care Team Providers Care Cloth Printing Utility Worker Name Role It Audit ManagerDarin De Souza MD Primary Care Provider Allergies Active Allergy Reactions Criticality Noted Date Comments Aspirin Hives 11/04/2024 Diclofenac Hives 11/04/2024 Ketorolac Hives 11/04/2024 Active Problems Problem Noted Date Diagnosed Date Parkinson's disease (CMS/[facility] V24, CMS/HCC V28) 1 07/07/2023 Encounters Date Type Department Care Team Description 04/21/2025 4:30 PM EDT Treatment [facility] [address] [id number] [place], Reshma, PT Right knee pain, unspecified chronicity (Primary Dx) 04/16/2025 1:30 PM EDT Treatment [facility] [address] [address] [place], Reshma, PT Right knee pain, unspecified chronicity (Primary Dx) 03/23/2025 2:30 PM EDT Treatment [facility] [address] [address] [place], Reshma, PT Right knee pain, unspecified chronicity (Primary Dx) 03/23/2025 Plan of Care Documentation [address] [address] 03/03/2025 3:00 PM EDT Treatment [facility] [address] [address] Willian, Reshma, PT Right knee pain, unspecified chronicity (Primary Dx) 03/01/2025 4:00 PM EDT Treatment [address] [address] [place], Reshma, PT Right knee pain, unspecified chronicity (Primary Dx) 02/18/2025 2:30 PM EDT Treatment [address] [address] Willian, Reshma, PT Right knee pain, unspecified chronicity (Primary Dx) 02/15/2025 2:30 PM EDT Treatment [address] [address] Florence Reshma, PT Right knee pain, unspecified chronicity (Primary Dx) 02/10/2025 2:30 PM EDT Treatment [address] [address] [place], Reshma, PT Right knee pain, unspecified chronicity (Primary Dx) 02/08/2025 2:30 PM EDT Treatment [address] [address] [place] Reshma, PT Right knee pain, unspecified chronicity (Primary Dx) from Last 3 Months Social [...] Sign Reading Time Taken Comments Blood Pressure 153/77 01/06/2025 3:18 PM EDT Pulse 64 01/06/2025 3:18 PM EDT Temperature 36.8 C (98.2 F) 01/06/2025 3:18 PM EDT Respiratory Rate 18 01/06/2025 3:18 PM EDT Oxygen Saturation 100% 01/06/2025 3:18 PM EDT Inhaled Oxygen Concentration - - Weight 62.1 kg (137 lb) 11/04/2024 10:09 AM EDT Height 162.6 cm (5' 4 ) 11/04/2024 10:09 AM EDT Body Mass Index 23.52 11/04/2024 10:09 AM EDT Plan of Treatment Upcoming Encounters Date Type Department Care Team (Late st Contact Info) Description 05/26/2025 4:00 PM EST Evaluation [facility] 175 [facility] [address] [place] [address] Reshma Dorsey, PT Health Maintenance Due Date Last Done Comments Zoster Vaccines (1 of 2) 01/16/2000 Pneumococcal Vaccine: 50+ Years (2 of 2 - PCV) 04/18/2021 04/18/2020 Cholesterol Screening (Lipid Panel) 01/14/2024 Falls Risk Assessment 01/14/2024 Hepatitis C Screening 01/14/2024 Medicare Annual Wellness Visit 01/14/2024 Social Influencers of Health Screening 01/14/2024 Hypertension/CHF/CAD Annual BMP Blood Test 04/28/2024 Depression Screening 06/24/2024 RSV Immunization Adult Patients (1 - 1-dose 75+ series) 2025 COVID-19 Vaccine ( - 2023- season) 2025 Influenza Vaccine (#1) 2025 , 05/16/2020, 08/27/2019, Additional history exists Colorectal Cancer [...] EST Impressions 05/27/2024 9:33 AM [place] Osteoporosis. [address] -------- FINAL REPORT -------- Dictated By: Margi Szymanski Dictated Date: 05/27/2024 09:32 ET Assigned Physician: Margi Szymanski Reviewed and Electronically Signed By: Margi Szymanski Signed Date: 05/27/2024 09:33 ET Workstation ID: [id number] Transcribed By: Self Edit Transcribed Date: 05/27/2024 09:32 ET Narrative 05/27/2024 9:33 AM EST History: Low estrogen state due to menopause. Personal history of fracture. Comparison: No comparison imaging at this institution. Findings: Bone densitometry is performed utilizing dual energy x-ray absorptiometry (DXA) in the [employer] unit. The lumbar spine and proximal femora are evaluated in the AP projection. The FRAX questionaire was completed. The results indicate osteoporosis, with a lumbar spine T-score of -3.0. The Z score is -1.1, indicating low bone mineral density for age. The detailed DEXA report will be mailed to the referring physician's office. DualFemur FRAX: 10-year Probability of Fracture: Major Osteoporotic 13.8 percent Hip 3.7 percent. Procedure Note Margi Szymanski MD - 05/27/2024 History: Low estrogen state due to menopause. Personal history offracture. Comparison: No comparison imaging at this institution. Findings: Bone densitometry is performed utilizing dual energy x-ray absorptiometry(DXA) in the [employer] unit. The lumbar spine and proximal femora [...] Osteoporotic 13.8percent Hip 3.7 percent. IMPRESSION: Osteoporosis. [address] -------- FINAL REPORT -------- Dictated By: Margi Szymanski Dictated Date: 05/27/2024 09:32 ET Assigned Physician: Margi Szymanski Reviewed and Electronically Signed By: Margi Szymanski Signed Date: 05/27/2024 09:33 ET Workstation ID: [id number] Transcribed By: Self Edit Transcribed Date: 05/27/2024 09:32 ET Julissa Leon NP IMG DXA PROCEDURES Final Result from Last 3 Months or Most Recently Relevant to Health Maintenance Insurance [facility] [employer] Member Subscriber Plan / Payer (Ef fective 2017-Present) Name:Julee Simental Relation to Subscriber:Self Name:Julee Simental Payer ID:[id number] Group ID:Not on file Type:Not on file Address: [place] [address] [address] [id number] Care Teams Cloth Printing Utility Worker Relationship Specialty Start Date End Date Darin De Souza MD [address] [place] [address] PCP - General Internal Medicine 08/13/24
--- OUTSIDE RECORDS SUMMARY | 2025-04-30 13:06 | XMS_ITS | Data Portability ---
Author Organization [facility], [facility] Address [address] [place] [address] Care Team Providers Care Material Disposition Inspector Name Role Phone [facility] Primary Care Provider Assessment No assessment recorded. Plan of Treatment Reminders Order Date Submit Date Provider Last Modified By Organization Details Last Modified Time Details Appointments None record ed. Lab None record ed. Referral None record ed. Procedures None record ed. Surgeries None record ed. Imaging None record ed. Medication Orders None record ed. Patient TargetsNo targets recorded. Patient InstructionsNo instructions recorded. Reason for Referral None Reported. Medical Equipment None Reported. Allergies Allergen ID Allergen Name Allergen Category Reaction Reaction Severity Criticality Documentation Date Start Date Code Code System Note Provider Name and Address Organization Details Recorded Time 77206 aspirin medicatio n Not available Not available Not available 08/26/20232022 1191 RxNorm Not Available [facility] 4 12:58:04 Medications Name Sig Start Date Stop Date Status Note LastModified by Organization Details LastModified Time atorvastatin 40 mg tablet TAKE 1 TABLET BY MOUTH DAILY active Not Available Not Available Not Available carvedilol 12.5 mg tablet TAKE 1 TABLET BY MOUTH TWICE DAILY active Not Available Not Available No t Available carbidopa ER 25 mg-levodopa 100 mg tablet,exten ded release TOME DOS TABLETAS POR V A ORAL SEIS VECES AL LEXY active Not Available Not Available No t Available Lidocaine Viscous 2 % mucosal solution APPLY TOPICALLY WITH FINGERTIP FOUR TIMES DAILY NEEDED active Not Available Not Available No t Available FreeStyle Lancets 28 gauge USE TO TEST BLOOD SUGAR THREE TIMES DAILY BEFORE MEALS active Not Available Not Available No t Available hydralazine 25 mg tablet TAKE 2 TABLETS BY MOUTH DAILY active Not Available Not Available Not Available clopidogrel 75 mg tablet TAKE 1 TABLET BY MOUTH EVERY DAY active Not Available Not Available No t Available amantadine HCl 100 mg capsule TAKE ONE CAPSULE BY MOUTH TWICE DAILY active Not Available Not Available No t Available acetaminophe n ER 650 mg tablet,exten ded release TAKE 1 TABLET EVERY 8 HOURS NEEDED FOR MILD PAIN active Not Available Not Available No t Available cephalexin 500 mg capsule TAKE 1 CAPSULE BY MOUTH THREE TIMES DAILY FOR 10 DAYS active Not Available Not Available Not Available pantoprazole 40 mg tablet,delay ed release TAKE 1 TABLET BY MOUTH DAILY NEEDED FOR HEARTBURN active Not Available Not Available No t Available docusate sodium 100 mg capsule TAKE ONE CAPSULE BY MOUTH TWICE DAILY NEEDED FOR CONSTIPAITO N active Not Available Not Available No t Available sertraline 25 mg tablet TAKE 1 TABLET BY MOUTH DAILY active Not Available Not Available Not Available hydrocortiso ne 2.5 % topical cream APPLY 1 APPLICATION TOPICALLY TWICE DAILY FOR 14 DAYS. active Not Available Not Available No t Available mupirocin 2 % topical ointment APPLY TOPICALLY TO THE AFFECTED AREA THREE TIMES DAILY FOR 7 DAYS active Not Available Not Available N ot Available FreeStyle Lite Strips USE TO TEST BLOOD SUGAR THREE TIMES DAILY BEFORE MEALS active Not Available Not Available No t Available Multaq 400 mg tablet TAKE 1 TABLET BY MOUTH TWICE DAILY active Not Available Not Available No t Available Gavilax 17 gram/dose oral powder DISSOLVE 17 GRAMS IN WATER AND TAKE BY MOUTH OCNE DAILY active Not Available Not Available No t Available Eliquis 5 mg tablet JERROD 1 TABLETA POR LA BOCA DOS VECES AL LEXY active Not Available Not Available No t Available Rytary 61.25 mg-245 mg capsule,exte nded release FOR 30 DAYS 2 CAPS IN AM AND 1 CAP 5 X'S PER DAY ORALLY . DIVIDE EVENLY OVER WAKING HOURS active Not Available Not Available No t Available Vitals Date Recorded Body height Body mass index (BMI) Body weight Provider Name and Address Organization Details Last Updated DateTime 11/12/2024 152.4 cm 26.4 kg/m2 13636.97 g Matt Kaba [place] - [facility] 11/12/2024 13:18:39 Social History None recorded. Functional Status None recorded. Mental Status None recorded. Family History Nothing Reported. Medical History No medical history recorded. Gynecological HistoryNo gynecological history recorded. 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 0310793775 M17.31 [id number] Health Concerns Section Related Observation LastModified by Organization Detai ls LastModified Time None Recorded Concern Status LastModified by Organization Details LastModified Time None Recorded Advance Directives Directive None Recorded Payers Insurance Date Sequence Insurance Name Policy Number Policy Holcomb Covered Member ID Holcomb Member ID Guarantor Name 11/22/2024 1 [facility] - DOS ON OR AFTER 2022 - DUAL ELIGIBLE - MEDICARE [place]VANTAGE [place] (MEDICARE REPLACEMENT/ADV ANTAGE - HMO) Julee Simental [id number] Julee Simental Notes Date Note Type Note Provider Name and Address Organization Details Recorded Time 11/12/2024 text/html I am seeing the patient today under the supervision of Dr. Richard who was available but who did not see the patient. HPI: Patient presents today regarding their right knee. They have had difficulty up and down stairs sitting standing. Problems ambulating. Aksi-hdj-kraqnni medications are helping somewhat but not significantly. Pain is constant aching sometimes sharp pain with giving out sensations. Past family, medical, social history and review of systems has been reviewed, updated and is located in the patient s chart. Examination: The patient is well appearing and in no apparent distress. Alert and oriented x3. Gait is symmetric. Examination of the right knee reveals no evidence of any edema, erythema, or warmth. No Deformity. Range of motion of the knee limited with mild discomfort at the end ranges. Mild effusion. Does have some tenderness to palpation about the joint line. Negative Luis s . Calf is supple and nontender. Neurovascularly intact distally. 4 X-ray views of the knee were independently reviewed today showed narrowing of the lateral compartment of the knee. Subchondral sclerosis and osteophyte formation present. No evidence of any other bony lesions or pathology. Impression: right Knee osteoarthritis Plan: We discussed the role of conservative management including medications, physical therapy, injection and bracing. At this point the patient wishes to proceed with injection today. This was scheduled for her in my totals clinic. They will follow up with us as scheduled. All questions answered Delia Rosas PA-C [address] [facility] [address], [place], [address], [place] - [facility] 11/12/2024 14:54:39 OBGyn Episode No OBEpisode recorded.
--- OUTSIDE RECORDS SUMMARY | 2025-04-30 13:06 | XMS_ITS | Clinical Summary ---
Author Organization [facility] Address [address] [phone] Phone Care Team Providers Care Sewer Separation Designer Name Role Phone Erika Ventura MD Primary Care Provider [phone] Allergies Active Allergy Reactions Criticality Noted Date [...] Care Team (Late st Contact Info) Description 05/25/2025 3:45 PM EST Office Visit [facility] [address] [phone] Bladimir Kurtz MD [address] [phone] Health Maintenance Due Date Last Done Comments Breast Cancer Screening 1950 Colorectal Cancer Screening: Annual FOBT 1999 Colorectal Cancer Screening: Colonoscopy 1999 Colorectal Cancer Screening: Sigmoidoscopy 1999 Pneumococcal Vaccine: 50+ Years (2 of 2 - PCV) 04/18/2021 04/18/2020 Influenza Vaccine (#1) 2025 , 05/16/2020, 08/27/2019, Additional history exists Pneumococcal Vaccine: Peds (0 to 5 Years) and At-Risk Patients (6 to 49 Years) Discontinued 04/18/2020 Hepatitis B Vaccine Aged Out No longe r eligible based on patient's age to complete this topic Insurance [facility] [place] [phone] [facility] ([id number]) [facility] ([id number]) Care Teams Sewer Separation Designer Relationship Specialty Start Date End Date Erika Ventura MD [address] [place], [place] PCP - General Internal Medicine 07/18/20
== END 2025-05-06 14:17 | disposition home or self-care (01) ==
LOC: HO.HSMS 10:54
PROVIDERS: PCP Internal Medicine; Visit Provider Nurse Practitioner Family
DX: G20.A1 Parkinson's disease without dyskinesia, without mention of fluctuations (principal); R29.898 Other symptoms and signs involving the musculoskeletal system; R26.9 Unspecified abnormalities of gait and mobility; K59.09 Other constipation
CPT/HCPCS: 99214